=== PATIENT | male | born 1940 | race Caucasian/White ===

== ENCOUNTER 2016-03-08 12:29 | Inpatient (IN) | payer OTHER ==
[2016-03-08] MEDS ORDERED: SODIUM CHLORIDE 2,000 ML IV STA (13:08)
--- NOTE | 2016-03-08 13:08 | PDOC ---
History of Present Illness - General History Source: Patient, Care Provider, Old Records Exam Limitations: Physical Impairment <Miryam Cazares - Last Filed: 03/08/16 16:26> - General History Source: Patient, Family Exam Limitations: Other - History of Present Illness Initial Comments: 03/08/16 13:57 The patient is a 75 year old male with a significant past medical history of strokes who presents to the emergency department today complaining of generalized weakness, difficulty breathing, right sided facial droopiness, fever , and abdominal pain since this morning. The patient is non-verbal and accompanied by family members, The patients history of present illness is limited due to patient's current condition. The patients niece stated that he has previously had 5 strokes. The patients niece also notes that he has had a loss of apetite for 5 days. The patient denies nausea, vomiting, diarrhea, and constipation. The patient denies chills and diaphoresis. <Rafa Bernal - Last Filed: 03/08/16 16:35> - General Chief Complaint: Chest Pain Stated Complaint: CHEST PAIN, SOB Time Seen by Provider: 03/08/16 13:07 Past History - Past Medical History Cardiac Disorders: Yes (angina) CVA: Yes (3 tia 2 cva rt sided weakness) HTN: Yes - Immunization History Immunization Up to Date: Yes - Psycho/Social/Smoking Cessation Hx Anxiety: No Suicidal Ideation: No Smoking History: Former smoker Have you smoked in the past 12 months: No Information on smoking cessation initiated: No Hx Alcohol Use: No Drug/Substance Use Hx: No Substance Use Type: None <Miryam Cazares - Last Filed: 03/08/16 16:26> <Rafa Bernal - Last Filed: 03/08/16 16:35> - Past Medical History Allergies/Adverse Reactions: Allergies Allergy/AdvReac Type Severity Reaction Status Date / Time No Known Allergies Allergy Verified 03/08/16 12:42 Home Medications: Ambulatory Orders Aspirin [ASA -] 81 mg PO DAILY 03/08/16 Clopidogrel Bisulfate [Plavix -] 75 mg PO DAILY 03/08/16 Dutasteride [Avodart] 0.5 mg PO DAILY 03/08/16 Esomeprazole Magnesium [Nexium 24Hr] 40 mg PO DAILY 03/08/16 Fenofibrate Nanocrystallized [Fenofibrate] 145 mg PO DAILY 03/08/16 Gabapentin 300 mg PO BID 03/08/16 Oxybutynin Chloride [Ditropan Xl] 10 mg PO DAILY 03/08/16 Quinapril HCl [Accupril] 10 mg PO DAILY 03/08/16 Simvastatin 40 mg PO DAILY 03/08/16 Tamsulosin HCl [Flomax] 0.4 mg PO DAILY 03/08/16 Review of Systems - Review of Systems Able to Perform ROS?: Yes Comments:: 03/08/16 13:58 CONSTITUTIONAL: Present: loss of appetite, fever, generalized weakness Absent: chills, diaphoresis, HEENT: Present: right sided facial droopiness Absent: rhinorrhea, nasal congestion, throat pain, throat swelling, difficulty swallowing, mouth swelling, ear pain, eye pain, visual Changes CARDIOVASCULAR: Absent: chest pain, syncope, palpitations, irregular heart rate, lightheadedness , peripheral edema RESPIRATORY: Present: cough, shortness of breath, Absent: wheezing, stridor, hemoptysis GASTROINTESTINAL: Present: abdominal pain Absent:, abdominal distension, nausea, vomiting, diarrhea, constipation, melena , hematochezia GENITOURINARY: Absent: dysuria, frequency, urgency, hesitancy, hematuria, flank pain, genital pain MUSCULOSKELETAL: Absent: myalgia, arthralgia, joint swelling SKIN: Absent: rash, itching, pallor HEMATOLOGIC/IMMUNOLOGIC: Absent: easy bleeding, easy bruising, lymphadenopathy, frequent infections ENDOCRINE: Absent: unexplained weight gain, unexplained weight loss, heat intolerance, cold intolerance NEUROLOGIC: Absent: headache, focal weakness or paresthesias, dizziness, unsteady gait, seizure, mental status changes, bladder or bowel incontinence PSYCHIATRIC: Absent: anxiety, depression, suicidal or homicidal ideation, hallucinations. <Rafa Bernal - Last Filed: 03/08/16 16:35> *Physical Exam - Vital Signs Last Vital Signs Temp Pulse Resp BP Pulse Ox 97.3 F L 87 18 68/45 96 03/08/16 12:44 03/08/16 12:44 03/08/16 12:44 03/08/16 12:44 03/08/16 12:44 <Miryam Cazares - Last Filed: 03/08/16 16:26> - Vital Signs Last Vital Signs Temp Pulse Resp BP Pulse Ox 99.7 F H 81 28 H 94/60 93 L 03/08/16 13:45 03/08/16 13:00 03/08/16 13:00 03/08/16 13:00 03/08/16 13:00 - Physical Exam Comments: 03/08/16 13:58 GENERAL: Well developed, well nourished. Awake and alert. In no acute distress. HEENT: Normocephalic, atraumatic. PERRLA, EOMI. No conjunctival pallor. Sclera are non- icteric. Moist mucous membranes. Oropharynx is clear. NECK: Supple. Full ROM. No JVD. Carotid pulses 2+ and symmetric, without bruits. No thyromegaly. No lymphadenopathy. CARDIOVASCULAR: + Right sided CVA tenderness. Regular rate and rhythm. No murmurs, rubs, or gallops. Distal pulses are 2+ and symmetric. PULMONARY: No evidence of respiratory distress. Lungs clear to auscultation bilaterally. No wheezing, rales or rhonchi. ABDOMINAL: Diffuse abdominal tenderness worse on the right side. Soft. Non-distended. No rebound or guarding. No organomegaly. Normoactive bowel sounds. MUSCULOSKELETAL Normal range of motion at all joints. No bony deformities or tenderness. No CVA tenderness. EXTREMITIES: +5/5 strength in upper and lower extremities. No cyanosis. No clubbing. No edema. No calf tenderness. SKIN: Warm and dry. Normal capillary refill. No rashes. No jaundice. NEUROLOGICAL: Alert, awake, appropriate. Cranial nerves 2-12 intact. No deficits to light touch and temperature in face, upper extremities and lower extremities. PSYCHIATRIC: Cooperative. Good eye contact. Appropriate mood and affect. <Rafa Bernal - Last Filed: 03/08/16 16:35> ED Treatment Course - LABORATORY CBC & Chemistry Diagram: 03/08/16 13:36 03/08/16 13:36 <Miryam Cazares - Last Filed: 03/08/16 16:26> - LABORATORY CBC & Chemistry Diagram: 03/08/16 13:36 03/08/16 13:36 - ADDITIONAL ORDERS Additional order review: Laboratory Results 03/08/16 03/08/16 13:36 13:36 VBG pH 7.42 H POC VBG pCO2 35.2 L POC VBG pO2 32.9 Lipase Cancelled 03/08/16 13:36 RBC 4.71 MCV 91.6 MCHC 33.2 RDW 14.2 MPV 9.6 Neutrophils % 84.3 H Lymphocytes % 8.9 Monocytes % 6.2 Eosinophils % 0.4 Basophils % 0.2 - RADIOLOGY Radiology Studies Ordered: 03/08/16 15:19 EXAM#: CT/HEAD CT WITHOUT CONTRAST History: Altered mental status CT Head without contrast There is moderate cerebral atrophy with chronic deep white matter ischemic change Localized hypodense region left parietal lobe suggestive of old infarct Old lacunar infarcts noted There is no evidence of any intracerebral hemorrhage, mass lesion or midline shift. There is no evidence of an acute subdural hematoma. No CT evidence of acute infarct. No fractures are identified. Impression: No acute bleed or mass or fracture.No CT evidence of acute infarct. EXAM#: RAD/CHEST X-RAY PORTABLE* Chest: Sepsis A single view reveals a weak inspiration, rotation to the right, widened mediastinum with sclerotic knob and degenerative changes. An acute process is not seen. There are no prior studies for comparison. Impression: No acute pathology. Weak inspiration. Rotation to right. Widened mediastinum. Clear lungs. EXAM#: CT/ABDOMEN PELVIS CT W/O CONTR History: Acute renal failure and elevated lipase CT Scan of abdomen and pelvis without oral or IV contrast Prior study available for correlation Significant significant inflammatory changes surrounding the pancreas including infiltration of the mesenteric fat but no discrete pseudocyst formation identified. Multiple gallstones are identified in the gallbladder. Slightly posterior and inferior to the gallbladder is a cystic structure containing high density material could represent invagination of the gallbladder. Could represent a gallstone within the lumen of the proximal duodenum. Does not have the typical appearance of a pseudocyst although this cannot be excluded. Size of the cystic structures approximately 3 cm. Sonographic evaluation may be helpful. The liver, spleen, and adrenal glands are unremarkable. There is no evidence of retroperitoneal lymphadenopathy or abdominal aortic aneurysm. There is no hydronephrosis or renal masses. No renal calculi identified. The urinary bladder and prostate are unremarkable. Scattered diverticula of the colon but no evidence of acute diverticulitis There is no evidence of bowel obstruction. There are no inflammatory changes of the colon. No fluid collections are identified. Fat-containing right inguinal hernia plus hypodensity structure probably a calcification. Impression: Acute pancreatitis. No definitive pseudocyst formation but cystic structure near the gallbladder and head of pancreas could represent extension of the gallbladder possibly gallstone within the lumen of the duodenum. Gallstones are seen within the gallbladder. Consider sonographic evaluation of right upper quadrant for further evaluation <CyrilronyRafa - Last Filed: 03/08/16 16:35> Medical Decision Making - Medical Decision Making 03/08/16 13:42 75-year-old male with history of hypertension and multiple CVAs in the past presents the emergency department with family and home health aides who state that the patient has had decrease appetite, abdominal pain, cough and generalized weakness for the past 5 days. The patient was noted to be hypotensive upon arrival to the emergency department. Differential diagnosis includes but is not limited to: Gallbladder disease, sepsis (secondary to UTI versus pneumonia), pancreatitis, dehydration, electrolyte abnormality, toxic/ metabolic derangement. Plan: 1. IV fluid for hydration 2. EKG 3. Labs 4. Chest x-ray 5. Urine 6. Observe and reevaluate 03/08/16 16:13 Addendum: The labs were reviewed and are noted in the electronic medical record. He had an elevated lipase and LFTs therefore CT scan of the abdomen and pelvis was performed and is significant for acute pancreatitis. Will admit to the hospital for IV fluids hydration, Pain management. <Miryam Cazares - Last Filed: 03/08/16 16:26> - Medical Decision Making 03/08/16 12:10 Call was placed to Dr[address] Shrestha to discuss case. Awaiting call back. Received call back from an on -call colleague who stated that Dr. Shrestha was construction engineer. 03/08/16 14:56 Second call was placed to Dr. Shrestha. Still awaiting a call back. 03/08/16 15:12 A third was placed to Dr. Shrestha. Awaiting call back. Dr. Shrestha was contacted at her cell phone. 03/08/16 15:45 A fourth page was put out to Dr. Shrestha and numerous messages were left by the answering service. Still awaiting call back. According to the answering service Dr. Shrestha is construction engineer physician for the group. A page was placed to her colleague, awaiting call back from him or Dr. Shrestha herself. 03/08/16 16:22 A call back was finally received from Dr. Shrestha who noted that she no longer admits for [facility] and the patient should be admitted by the hospitalist. Dr. Miranda, construction engineer physician for medicine, was contacted and case discussed with her. <Rafa Bernal - Last Filed: 03/08/16 16:35> *DC/Admit/Observation/Transfer - Discharge Dispostion Admit: Yes - Attestations Physician Attestion: 03/08/16 13:46 I, Dr. Miryam Cazares, attest that the scribes documentation that appears above has been prepared under my direction and personally reviewed by me in its entirety. I confirmed that the note above accurately reflects all work, treatment, procedures, and medical decision-making performed by me. <Miryam Cazares - Last Filed: 03/08/16 16:26> - Attestations Scribe Attestion: 03/08/16 13:58 Documentation prepared by Rafa Bernal, acting as medical review coordinator for Miryam Cazares MD. <Rafa Bernal - Last Filed: 03/08/16 16:35> Diagnosis at time of Disposition: Generalized weakness, Hypotension, Acute pancreatitis - Discharge Dispostion Condition at time of disposition: Stable - Referrals Referrals: Laina Shrestha MD [Primary Care Provider] -
[2016-03-08 13:42] LABS: VENOUS BLOOD GAS HCO3 22.5 meq/L (22-29)
[2016-03-08 13:43] LABS: VENOUS PH 7.42 (7.31-7.41)
[2016-03-08 13:46] LABS: BASOPHIL 0.2 % (0-2.0); EOSINOPHIL 0.4 % (0-4.5); MCH 30.4 pg (25.7-33.7); MCHC 33.2 g/dl (32.0-35.9); MEAN CELL VOLUME 91.6 fl (80-96); MEAN PLT VOLUME 9.6 fl (7.5-11.1); NEUTROPHILS 84.3 % (42.8-82.8); PLATELET COUNT 233 K/MM3 (134-434); RDW 14.2 % (11.9-15.9); WHITE BLOOD COUNT 15.4 K/mm3 (4.0-10.0)
[2016-03-08 13:57] LABS: INR 1.18 (0.82-1.09)
[2016-03-08 14:00] LABS: ACTIVATED PTT 26.9 SECONDS (26.9-34.4)
[2016-03-08 14:17] LABS: ALBUMIN 2.9 g/dl (3.4-5.0); ANION GAP 12 (8-16); BILIRUBIN,TOTAL 1.3 mg/dL (0.2-1.0); CALCIUM 8.8 mg/dL (8.5-10.1); CO2 23 mmol/L (21-32); CREATININE 1.9 mg/dL (0.7-1.3); GLUCOSE,RANDOM 124 mg/dL (74-106); SGPT/ALT 105 U/L (12-78); TOT PROT 6.9 g/dl (6.4-8.2)
[2016-03-08 14:19] LABS: ALK PHOS 83 U/L (45-117); TROPONIN I < 0.02 ng/ml (0.00-0.05)
[2016-03-08 14:23] LABS: SGOT/AST 128 U/L (15-37)
[2016-03-08] MEDS ORDERED: SODIUM CHLORIDE 1,000 ML IV STA (16:17)
[2016-03-08] MEDS ORDERED: morphine CARPU-JECT 4 MG/1 ML DISP.SYRIN IVPUSH ONE (16:17)
[2016-03-08] MEDS ORDERED: morphine CARPU-JECT 4 MG/1 ML DISP.SYRIN ONE (16:22)
[2016-03-08] MEDS ORDERED: ONDANSETRON 4 MG/2 ML VIAL IVPB PRN (16:54)
[2016-03-08] MEDS ORDERED: SODIUM CHLORIDE 1,000 ML IV SCH (17:00)
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
[2016-03-08] MEDS ORDERED: CIPROFLOXACIN 400 MG/D5W 200 ML IVPB SCH (18:33)
[2016-03-08] MEDS: METRONIDAZOLE 500 MG PREMIXED 100 ML IVPB SCH (22:15)
[2016-03-08] MEDS: LEVOFLOXACIN 500 MG IVPB 100 ML IVPB SCH (23:20)
[2016-03-08] MEDS: GABAPENTIN 300 MG CAPSULE (FP) PO SCH (23:21)
[2016-03-08] MEDS: HEPARIN NA (PORCINE) 5,000 UNITS/ML 1ML VIAL SQ SCH (23:21)
[2016-03-09 01:30] VITALS: BMI 30.4
[2016-03-09 03:59] LABS: URINE APPEARANCE CLOUDY; URINE BILIRUBIN NEGATIVE (NEGATIVE); URINE COLOR AMBER; URINE GLUCOSE (UA) NEGATIVE (NEGATIVE); URINE KETONE NEGATIVE (NEGATIVE); URINE LEUK ESTERASE NEGATIVE (NEGATIVE); URINE NITRITE NEGATIVE (NEGATIVE); URINE UROBILINOGEN 4.0 E.U/dl E.U./dl (0.2-1.0)
[2016-03-09] MEDS: METRONIDAZOLE 500 MG PREMIXED 100 ML IVPB SCH ×2 (04:00→10:05)
[2016-03-09 04:05] LABS: URINE BLOOD 1+ (NEGATIVE); URINE PROTEIN 2+ (NEGATIVE)
[2016-03-09 04:10] LABS: URINE BACTERIA RARE /hpf (NONE SEEN); URINE HYALINE CAST 3 /lpf; URINE MUCUS MODERATE; URINE RBC 2 /hpf (0-3); URINE WBC 11 /hpf (3-5)
[2016-03-09 07:50] LABS: BASOPHIL 0.1 % (0-2.0); EOSINOPHIL 0.2 % (0-4.5); MCH 30.3 pg (25.7-33.7); MCHC 33.4 g/dl (32.0-35.9); MEAN CELL VOLUME 90.6 fl (80-96); MEAN PLT VOLUME 9.6 fl (7.5-11.1); NEUTROPHILS 83.5 % (42.8-82.8); PLATELET COUNT 215 K/MM3 (134-434); RDW 14.2 % (11.9-15.9); WHITE BLOOD COUNT 14.2 K/mm3 (4.0-10.0)
[2016-03-09 08:48] LABS: CREATININE 1.2 mg/dL (0.7-1.3)
[2016-03-09 08:59] LABS: ALBUMIN 2.4 g/dl (3.4-5.0); BILIRUBIN,TOTAL 1.8 mg/dL (0.2-1.0); CALCIUM 8.6 mg/dL (8.5-10.1); TOT PROT 5.9 g/dl (6.4-8.2)
[2016-03-09] MEDS ORDERED: PATIENT'S OWN MEDICATION (NON-FORMULARY) (Oxybutynin Chloride [Ditropan Xl] 10 MG) PO SCH (10:00)
[2016-03-09] MEDS ORDERED: QUINAPRIL HCL 10 MG TABLET (FP) PO SCH (10:00)
[2016-03-09] MEDS ORDERED: CLOPIDOGREL BISULFATE 75 MG TABLET (FP) PO SCH (10:00)
[2016-03-09] MEDS: ASPIRIN 81 MG CHEWABLE TABLETS PO SCH (10:05)
[2016-03-09] MEDS: GABAPENTIN 300 MG CAPSULE (FP) PO SCH ×2 (10:05→21:26)
[2016-03-09] MEDS: HEPARIN NA (PORCINE) 5,000 UNITS/ML 1ML VIAL SQ SCH ×2 (10:05→21:26)
[2016-03-09] MEDS: LEVOFLOXACIN 500 MG IVPB 100 ML IVPB SCH (10:05)
[2016-03-09] MEDS: DUTASTERIDE 0.5 MG CAP (FP) PO SCH (10:05)
[2016-03-09] MEDS: TAMSULOSIN HCL 0.4 MG CAP.ER.24H (FP) PO SCH (10:05)
[2016-03-09] MEDS: FENOFIBRIC ACID 135 MG CAP PO SCH (10:14)
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
--- NOTE | 2016-03-09 11:51 | EKG ---
Test Reason : Blood Pressure : / mmHG Vent. Rate : 082 BPM Atrial Rate : 082 BPM P-R Int : 154 ms QRS Dur : 098 ms QT Int : 358 ms P-R-T Axes : 050 006 065 degrees QTc Int : 418 ms NORMAL SINUS RHYTHM NORMAL ECG WHEN COMPARED WITH ECG OF 24-JUN-2005 22:51, NO SIGNIFICANT CHANGE WAS FOUND Confirmed by RAUL HENDERSON MD ([id number]) on 03/09/2016 11:51:12 AM Referred By: Overread By: RAUL HENDERSON MD
[2016-03-09] MEDS: morphine CARPU-JECT 2 MG/1 ML DISP.SYRIN IVPUSH PRN ×2 (13:25→21:26)
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
--- NOTE | 2016-03-09 21:06 | PN ---
Progress Note, Physician Chief Complaint: abdominal pain controlled with medications, no other complaints. Hungry. - Current Medication List Current Medications: Active Medications Aspirin (Asa -) 81 mg PO DAILY [facility] Last Admin: 03/09/16 10:05 Dose: 81 mg Atorvastatin Calcium (Lipitor -) 20 mg PO HS [facility] Dutasteride (Avodart -) 0.5 mg PO DAILY [facility] Last Admin: 03/09/16 10:05 Dose: 0.5 mg Fenofibric Acid (Trilipix -) 135 mg PO DAILY [facility] Last Admin: 03/09/16 10:14 Dose: 135 mg Gabapentin (Neurontin -) 300 mg PO BID [facility] Last Admin: 03/09/16 10:05 Dose: 300 mg Heparin Sodium (Porcine) (Heparin -) 5,000 unit SQ BID [facility] Last Admin: 03/09/16 10:05 Dose: 5,000 unit Metronidazole (Flagyl 500mg Premixed Ivpb -) 100 mls @ 100 mls/hr IVPB Q8H-IV [facility] Last Admin: 03/09/16 10:05 Dose: 100 mls/hr Levofloxacin (Levaquin 500 Mg Premixed Ivpb -) 100 mls @ 100 mls/hr IVPB DAILY [facility] Last Admin: 03/09/16 10:05 Dose: 100 mls/hr Sodium Chloride (Normal Saline -) 1,000 mls @ 200 mls/hr IV ASDIR [facility] Morphine Sulfate (Morphine Injection -) 2 mg IVPUSH Q4H PRN PRN Reason: PAIN Last Admin: 03/09/16 13:25 Dose: 2 mg Ondansetron HCl (Zofran Injection) 4 mg IVPB Q8H PRN PRN Reason: NAUSEA Solifenacin (Vesicare -) 5 mg PO DAILY [facility] Tamsulosin HCl (Flomax -) 0.4 mg PO DAILY [facility] Last Admin: 03/09/16 10:05 Dose: 0.4 mg - Objective Vital Signs: Vital Signs Temperature 100.4 F H 03/09/16 17:00 Pulse Rate 72 03/09/16 17:00 Respiratory Rate 16 03/09/16 20:58 Blood Pressure 147/72 03/09/16 17:00 O2 Sat by Pulse Oximetry (%) 100 03/09/16 20:58 Constitutional: Yes: Well Nourished, No Distress, Calm Cardiovascular: Yes: WNL, Regular Rate and Rhythm Respiratory: Yes: WNL, Regular, CTA Bilaterally Gastrointestinal: Yes: Tenderness, Epigastrium Extremities: Yes: WNL Edema: No ...Motor Strength: WNL Labs: CBC, BMP 03/09/16 05:35 03/09/16 05:35 INR, PTT INR 1.18 (0.82-1.09) H 03/08/16 13:36 Problem List - Problems (1) Acute pancreatitis Assessment/Plan: -likely gallstone pancreatitis, MRCP ordered -GI and surgery notes reviewed -continue iv hydration -levaquin and flagyl -npo -pain control -antiemetics -monitor lfts -attempted to reach pcp yesterday and today to clarify medical hx(?cad,) still awaiting call back Code(s): K85.9 - ACUTE PANCREATITIS, UNSPECIFIED * DO NOT USE * (2) CVA, old, aphasia Code(s): I69.320 - APHASIA FOLLOWING CEREBRAL INFARCTION (3) HTN (hypertension) Code(s): I10 - ESSENTIAL (PRIMARY) HYPERTENSION (4) HLD (hyperlipidemia) Code(s): E78.5 - HYPERLIPIDEMIA, UNSPECIFIED
[2016-03-09] MEDS: SODIUM CHLORIDE 1,000 ML IV SCH (21:26)
[2016-03-09] MEDS: ATORVASTATIN CA 20 MG TABLET (FP) PO SCH (21:26)
[2016-03-10] MEDS: METRONIDAZOLE 500 MG PREMIXED 100 ML IVPB SCH ×3 (03:17→17:38)
[2016-03-10] MEDS: SODIUM CHLORIDE 1,000 ML IV SCH ×2 (03:17→16:11)
[2016-03-10] MEDS: morphine CARPU-JECT 2 MG/1 ML DISP.SYRIN IVPUSH PRN ×3 (05:20→17:38)
[2016-03-10 08:26] LABS: ALBUMIN 2.3 g/dl (3.4-5.0); BILIRUBIN,DIRECT 0.7 mg/dL (0.0-0.2); BILIRUBIN,TOTAL 1.3 mg/dL (0.2-1.0); TOT PROT 5.5 g/dl (6.4-8.2)
[2016-03-10] MEDS: FENOFIBRIC ACID 135 MG CAP PO SCH (09:25)
[2016-03-10] MEDS: ASPIRIN 81 MG CHEWABLE TABLETS PO SCH (09:25)
[2016-03-10] MEDS: GABAPENTIN 300 MG CAPSULE (FP) PO SCH ×2 (09:25→22:01)
[2016-03-10] MEDS: TAMSULOSIN HCL 0.4 MG CAP.ER.24H (FP) PO SCH (09:25)
[2016-03-10] MEDS: HEPARIN NA (PORCINE) 5,000 UNITS/ML 1ML VIAL SQ SCH ×2 (09:26→22:02)
[2016-03-10] MEDS: SOLIFENACIN SUCCINATE 5 MG TAB (FP) PO SCH (09:26)
[2016-03-10] MEDS: DUTASTERIDE 0.5 MG CAP (FP) PO SCH (09:26)
[2016-03-10] MEDS: LEVOFLOXACIN 500 MG IVPB 100 ML IVPB SCH (09:26)
--- NOTE | 2016-03-10 13:26 | PN ---
Progress Note (short form) - Note Progress Note: PRE-OP NOTE Dx: GS Pancreatitis Planned procedure: Lap norm, possible open Surgeon: Dr. Dudley Longo Last Vital Signs Temp Pulse Resp BP Pulse Ox 98.7 F 84 18 103/53 98 03/10/16 10:00 03/10/16 10:00 03/10/16 10:00 03/10/16 10:00 03/10/16 10:00 CBC, BMP 03/09/16 05:35 03/09/16 05:35 INR, PTT INR 1.18 (0.82-1.09) H 03/08/16 13:36 Blood Type Blood Type A POSITIVE 03/08/16 14:30 MRCP: official results reviewed. CXR 03/08: JESSICA Problem List - Problems (1) Cholelithiasis NOS Assessment/Plan: Patient scheduled for lap norm at 10am 03/11/16. NPO after midnight except PO meds GI / DVT ppx Medical optimization & cardiac clearance ABove discussed with Dr. Longo and agrees. Code(s): K80.20 - CALCULUS OF GALLBLADDER W/O CHOLECYSTITIS W/O OBSTRUCTION (2) Acute pancreatitis Code(s): K85.9 - ACUTE PANCREATITIS, UNSPECIFIED * DO NOT USE * (3) CVA, old, aphasia Code(s): I69.320 - APHASIA FOLLOWING CEREBRAL INFARCTION (4) HTN (hypertension) Code(s): I10 - ESSENTIAL (PRIMARY) HYPERTENSION
--- NOTE | 2016-03-10 13:41 | PN ---
Progress Note (short form) - Note Progress Note: GI NOte: ERCP reviewed with Dr Aviles. No CBD obstruction but pancreatitis in head still seen. ERCP canceled.
[2016-03-10 14:32] LABS: ALBUMIN 2.5 g/dl (3.4-5.0); ANION GAP 7 (8-16); CO2 25 mmol/L (21-32); GLUCOSE,RANDOM 88 mg/dL (74-106); MAGNESIUM 1.7 mg/dL (1.8-2.4); SGOT/AST 44 U/L (15-37); SGPT/ALT 69 U/L (12-78); TOT PROT 5.8 g/dl (6.4-8.2)
[2016-03-10 14:33] LABS: ALK PHOS 83 U/L (45-117)
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
--- NOTE | 2016-03-10 15:58 | PN ---
Progress Note (short form) - Note Progress Note: 1. Pre-op cardiovascular evaluation lap/open cholecystectomy for GS pancreatitis 2. 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 HTN 4. Cholelithiasis 5. PVC P:1. Given absence of ischemic sxs, decompensated CHF or maliganant arrhythmia, may proceed with cholecystectomy from CV standpoint without further testing 2. Echocardiogram to assess LV and valve fxn, does not have to be performed prior to surgery 3. Hold ASA/Plavix pre-op and resume once post-op hemostasis has been achieved, start Toprol XL 25 qd, continue Accupril 10 qd, continue abx, bowel rest 4. Thank you for consultative opportunity Problem List - Problems (1) Acute pancreatitis Code(s): K85.9 - ACUTE PANCREATITIS, UNSPECIFIED * DO NOT USE * Qualifiers: Pancreatitis type: other Qualified Code(s): K85.8 - Other acute pancreatitis (2) CVA, old, aphasia Code(s): I69.320 - APHASIA FOLLOWING CEREBRAL INFARCTION (3) HLD (hyperlipidemia) Code(s): E78.5 - HYPERLIPIDEMIA, UNSPECIFIED Qualifiers: Hyperlipidemia type: pure hypercholesterolemia Qualified Code(s): E78.0 - Pure hypercholesterolemia (4) HTN (hypertension) Code(s): I10 - ESSENTIAL (PRIMARY) HYPERTENSION Qualifiers: Hypertension type: essential hypertension Qualified Code(s): I10 - Essential (primary) hypertension
[2016-03-10] MEDS: METOPROLOL SUCCINATE 25 MG TAB.SR.24H (FP) PO SCH (16:11)
--- NOTE | 2016-03-10 18:34 | PN ---
Progress Note, Physician History of Present Illness: No new change - Current Medication List Current Medications: Active Medications Atorvastatin Calcium (Lipitor -) 20 mg PO HS [facility] Last Admin: 03/09/16 21:26 Dose: 20 mg Dutasteride (Avodart -) 0.5 mg PO DAILY [facility] Last Admin: 03/10/16 09:26 Dose: 0.5 mg Fenofibric Acid (Trilipix -) 135 mg PO DAILY [facility] Last Admin: 03/10/16 09:25 Dose: 135 mg Gabapentin (Neurontin -) 300 mg PO BID [facility] Last Admin: 03/10/16 09:25 Dose: 300 mg Heparin Sodium (Porcine) (Heparin -) 5,000 unit SQ BID [facility] Last Admin: 03/10/16 09:26 Dose: 5,000 unit Metronidazole (Flagyl 500mg Premixed Ivpb -) 100 mls @ 100 mls/hr IVPB Q8H-IV [facility] Last Admin: 03/10/16 17:38 Dose: 100 mls/hr Levofloxacin (Levaquin 500 Mg Premixed Ivpb -) 100 mls @ 100 mls/hr IVPB DAILY [facility] Last Admin: 03/10/16 09:26 Dose: 100 mls/hr Sodium Chloride (Normal Saline -) 1,000 mls @ 200 mls/hr IV ASDIR [facility] Last Admin: 03/10/16 16:11 Dose: 200 mls/hr Metoprolol Succinate (Toprol Xl -) 25 mg PO DAILY [facility] Last Admin: 03/10/16 16:11 Dose: 25 mg Morphine Sulfate (Morphine Injection -) 2 mg IVPUSH Q4H PRN PRN Reason: PAIN Last Admin: 03/10/16 17:38 Dose: 2 mg Ondansetron HCl (Zofran Injection) 4 mg IVPB Q8H PRN PRN Reason: NAUSEA Solifenacin (Vesicare -) 5 mg PO DAILY [facility] Last Admin: 03/10/16 09:26 Dose: 5 mg Tamsulosin HCl (Flomax -) 0.4 mg PO DAILY [facility] Last Admin: 03/10/16 09:25 Dose: 0.4 mg - Objective Vital Signs: Vital Signs Temperature 99.1 F 03/10/16 15:00 Pulse Rate 74 03/10/16 15:00 Respiratory Rate 18 03/10/16 15:00 Blood Pressure 127/64 03/10/16 15:00 O2 Sat by Pulse Oximetry (%) 98 03/10/16 10:00 Constitutional: Yes: Well Nourished Cardiovascular: Yes: WNL, Regular Rate and Rhythm Respiratory: Yes: WNL, Regular, CTA Bilaterally Gastrointestinal: Yes: WNL, Soft Labs: CBC, BMP 03/09/16 05:35 03/10/16 13:45 INR, PTT INR 1.18 (0.82-1.09) H 03/08/16 13:36 Problem List - Problems (1) Acute pancreatitis Assessment/Plan: MRCP showed gallstone pancreatitis Pt scheduled for lap choley Cardio clearance appreciated Cont IVF/NPO Code(s): K85.9 - ACUTE PANCREATITIS, UNSPECIFIED * DO NOT USE * Qualifiers: Pancreatitis type: other Qualified Code(s): K85.8 - Other acute pancreatitis (2) CVA, old, aphasia Code(s): I69.320 - APHASIA FOLLOWING CEREBRAL INFARCTION (3) Cholelithiasis NOS Code(s): K80.20 - CALCULUS OF GALLBLADDER W/O CHOLECYSTITIS W/O OBSTRUCTION (4) HLD (hyperlipidemia) Code(s): E78.5 - HYPERLIPIDEMIA, UNSPECIFIED Qualifiers: Hyperlipidemia type: pure hypercholesterolemia Qualified Code(s): E78.0 - Pure hypercholesterolemia (5) HTN (hypertension) Code(s): I10 - ESSENTIAL (PRIMARY) HYPERTENSION Qualifiers: Hypertension type: essential hypertension Qualified Code(s): I10 - Essential (primary) hypertension
[2016-03-10] MEDS: ATORVASTATIN CA 20 MG TABLET (FP) PO SCH (22:01)
[2016-03-11] MEDS: METRONIDAZOLE 500 MG PREMIXED 100 ML IVPB SCH ×3 (01:19→17:14)
[2016-03-11 08:19] LABS: BASOPHIL 0.3 % (0-2.0); EOSINOPHIL 0.5 % (0-4.5); MCH 30.6 pg (25.7-33.7); MCHC 33.5 g/dl (32.0-35.9); MEAN CELL VOLUME 91.4 fl (80-96); MEAN PLT VOLUME 9.6 fl (7.5-11.1); NEUTROPHILS 78.1 % (42.8-82.8); PLATELET COUNT 251 K/MM3 (134-434); RDW 14.1 % (11.9-15.9); WHITE BLOOD COUNT 12.1 K/mm3 (4.0-10.0)
[2016-03-11 08:34] LABS: ALBUMIN 2.4 g/dl (3.4-5.0); ANION GAP 2 (8-16); CALCIUM 8.8 mg/dL (8.5-10.1); CO2 25 mmol/L (21-32); GLUCOSE,RANDOM 79 mg/dL (74-106); SGOT/AST 42 U/L (15-37); TOT PROT 5.5 g/dl (6.4-8.2)
[2016-03-11 08:41] LABS: ALK PHOS 81 U/L (45-117); CREATININE 0.9 mg/dL (0.7-1.3); SGPT/ALT 58 U/L (12-78)
[2016-03-11] MEDS: FENOFIBRIC ACID 135 MG CAP PO SCH (09:14)
[2016-03-11] MEDS: SOLIFENACIN SUCCINATE 5 MG TAB (FP) PO SCH (09:14)
[2016-03-11] MEDS: LEVOFLOXACIN 500 MG IVPB 100 ML IVPB SCH ×2 (09:14→14:05)
[2016-03-11] MEDS: GABAPENTIN 300 MG CAPSULE (FP) PO SCH ×2 (09:14→22:08)
[2016-03-11] MEDS: METOPROLOL SUCCINATE 25 MG TAB.SR.24H (FP) PO SCH (09:14)
[2016-03-11] MEDS: DUTASTERIDE 0.5 MG CAP (FP) PO SCH (09:14)
[2016-03-11] MEDS: HEPARIN NA (PORCINE) 5,000 UNITS/ML 1ML VIAL SQ SCH ×2 (09:14→22:09)
[2016-03-11] MEDS: TAMSULOSIN HCL 0.4 MG CAP.ER.24H (FP) PO SCH (09:14)
[2016-03-11] MEDS ORDERED: DEXAMETHASONE SOD PHOSPHATE 4 MG/1 ML VIAL ONE (10:45)
[2016-03-11] MEDS ORDERED: PROPOFOL 20 ML ONE (10:46)
[2016-03-11] MEDS ORDERED: LIDOCAINE HCL/PF 2% SDV 5ML VIAL ONE (10:46)
[2016-03-11] MEDS ORDERED: ROCURONIUM BROMIDE 50 MG/5 ML VIAL ONE (10:47)
[2016-03-11] MEDS ORDERED: BUPIVACAINE HCL/PF 0.5% (5MG/ML) 10 ML VIAL IJ ONE ×2 (11:11)
[2016-03-11] MEDS ORDERED: GLYCOPYRROLATE 0.2 MG/1 ML VIAL ONE (11:50)
[2016-03-11] MEDS ORDERED: NEOSTIGMINE METHYLSULFATE 0.5 MG/ML - 10 ML MDV ONE (11:50)
--- NOTE | 2016-03-11 12:04 | OP ---
Operative Note - Note: Operative Date: 03/11/16 Pre-Operative Diagnosis: gall stone pancreatitis Operation: laparoscopic cholecystecotmy Post-Operative Diagnosis: Same as Pre-op Surgeon: Dudley Longo Anesthesia: General Specimens Removed: gall bladder Estimated Blood Loss (mls): 30 Drains & Tubes with Location: [facility]do Operative Report Dictated: Yes
[2016-03-11] MEDS ORDERED: HYDROmorphone HCL CARPU-JECT 2 MG/1 ML DISP.SYRIN ONE (12:21)
--- NOTE | 2016-03-11 12:23 | SURG ---
Surgery Real Estate Specialist Note Real Estate Specialist: Michelle Valentino PA-C Date of Service: 03/11/16 Diagnosis: gallstone pancreatitis Procedure: laparoscopic cholecystecotmy I was present for the entirety of the operative procedure. For further detail, please refer to operative report. Visit type - Case Type Case Type: ED Admission - Emergency Emergency Visit: Yes ED Registration Date: 03/08/16 Care time: The patient presented to the Emergency Department on the above date and was hospitalized for further evaluation of their emergent condition. - New patient This patient is new to me today: No
[2016-03-11] MEDS: HYDROmorphone HCL CARPU-JECT 1 MG/1 ML DISP.SYRIN IVPUSH PRN ×2 (12:25→12:40)
[2016-03-11] MEDS ORDERED: dilTIAZem HCL 30 MG TABLET (FP) ONE (12:43)
[2016-03-11] MEDS ORDERED: ONDANSETRON 4 MG/2 ML VIAL IVPB PRN (12:44)
[2016-03-11] MEDS ORDERED: morphine CARPU-JECT 2 MG/1 ML DISP.SYRIN IVPUSH PRN (12:44)
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
--- NOTE | 2016-03-11 13:26 | PN ---
Progress Note, Physician Chief Complaint: Events noted Patient seen in recovery room post laparoscopic cholecystectomy Awake and hemodynamically stable History of Present Illness: Patient was seen and examined. Chart was reviewed - Current Medication List Current Medications: Active Medications Atorvastatin Calcium (Lipitor -) 20 mg PO HS [facility] Dutasteride (Avodart -) 0.5 mg PO DAILY [facility] Fenofibric Acid (Trilipix -) 135 mg PO DAILY [facility] Gabapentin (Neurontin -) 300 mg PO BID [facility] Heparin Sodium (Porcine) (Heparin -) 5,000 unit SQ BID [facility] Hydromorphone HCl (Dilaudid Injection -) 1 mg IVPUSH [id number] PRN PRN Reason: PAIN Stop: 03/14/16 12:20 Lactated Ringer's (Lactated Ringers Solution) 1,000 mls @ 83 mls/hr IV ASDIR [facility] Metronidazole (Flagyl 500mg Premixed Ivpb -) 100 mls @ 100 mls/hr IVPB Q8H-IV [facility] Levofloxacin (Levaquin 500 Mg Premixed Ivpb -) 100 mls @ 100 mls/hr IVPB DAILY [facility] Metoprolol Succinate (Toprol Xl -) 25 mg PO DAILY [facility] Morphine Sulfate (Morphine Injection -) 4 mg IVPUSH Q4H PRN PRN Reason: PAIN Ondansetron HCl (Zofran Injection) 4 mg IVPB Q8H PRN PRN Reason: NAUSEA Pantoprazole Sodium (Protonix -) 40 mg PO DAILY [facility] Solifenacin (Vesicare -) 5 mg PO DAILY [facility] Tamsulosin HCl (Flomax -) 0.4 mg PO DAILY@0830 [facility] - Objective Vital Signs: Vital Signs Temperature 99.1 F 03/11/16 12:10 Pulse Rate 86 03/11/16 12:25 Respiratory Rate 18 03/11/16 12:25 Blood Pressure 138/74 03/11/16 12:25 O2 Sat by Pulse Oximetry (%) 94 L 03/11/16 12:25 Neck: Yes: Supple Cardiovascular: Yes: Regular Rate and Rhythm, S1, S2 Respiratory: Yes: Diminished Gastrointestinal: Yes: Other (Post Op) Edema: No Labs: CBC, BMP 03/11/16 06:00 03/11/16 06:00 Assessment/Plan 1. 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 HTN 4. Cholelithiasis 5. PVC PLAN: 1. Post op management. 2. Transthoracic echocardiography at some point 3. Resume ASA +/- Plavix post-op once hemostasis has been achieved 4. Restart Toprol XL 25 mg QD and Accupril 10 mg QD once able to take PO 5. Continue antibiotic coverage Further plans are to follow May transfer to med/surg cardiac standpoint Anand Araya MD
[2016-03-11] MEDS: LACTATED RINGERS SOLUTION 1,000 ML IV SCH (14:05)
--- NOTE | 2016-03-11 15:11 | PN ---
GI Progress Note Subjective: Taken to OR today and underwent lap norm No acute events - Objective Vital Signs: Vital Signs Temperature 98.9 F 03/11/16 14:52 Pulse Rate 75 03/11/16 14:52 Respiratory Rate 20 03/11/16 14:52 Blood Pressure 136/56 03/11/16 14:52 O2 Sat by Pulse Oximetry (%) 98 03/11/16 13:55 Constitutional: Calm Eyes: No: Sclera Icterus Cardiovascular: Yes: Regular Rate and Rhythm (with PVC's) Respiratory: Yes: CTA Bilaterally Gastrointestinal Inspection: Yes: Scars (new torchar scars that were glued, + JUANI drain in place with serosanguinous fluid). No: Distention ...Auscultate: Yes: Normoactive Bowel Sounds ...Palpate: Yes: Tenderness (at trochar sites) Edema: No Labs: CBC, BMP 03/11/16 06:00 03/11/16 06:00 INR, PTT INR 1.18 (0.82-1.09) H 03/08/16 13:36 Hepatic Panel Total Bilirubin 1.0 mg/dL (0.2-1.0) 03/11/16 06:00 Direct Bilirubin 0.7 mg/dL (0.0-0.2) H 03/10/16 05:35 AST 42 U/L (15-37) H 03/11/16 06:00 ALT 58 U/L (12-78) 03/11/16 06:00 Alkaline Phosphatase 81 U/L (45-117) 03/11/16 06:00 Albumin 2.4 g/dl (3.4-5.0) L 03/11/16 06:00 - ....Imaging MRI: Other (cystic structure near head of pancreas) Problem List - Problems (1) Acute pancreatitis Assessment/Plan: Improved clinically Monitor LFTs. If LFTs rise in obstructive pattern may need ERCP to evaluate CBD Code(s): K85.9 - ACUTE PANCREATITIS, UNSPECIFIED * DO NOT USE * Qualifiers: Pancreatitis type: other Qualified Code(s): K85.8 - Other acute pancreatitis (2) Cholelithiasis NOS Assessment/Plan: S/P Lap Norm. Post op care per surgery Code(s): K80.20 - CALCULUS OF GALLBLADDER W/O CHOLECYSTITIS W/O OBSTRUCTION
--- NOTE | 2016-03-11 20:16 | PN ---
Progress Note, Physician History of Present Illness: Pt tolerated surgery however slightly aggitated this pm - Current Medication List Current Medications: Active Medications Atorvastatin Calcium (Lipitor -) 20 mg PO HS [facility] Dutasteride (Avodart -) 0.5 mg PO DAILY [facility] Fenofibric Acid (Trilipix -) 135 mg PO DAILY [facility] Gabapentin (Neurontin -) 300 mg PO BID [facility] Heparin Sodium (Porcine) (Heparin -) 5,000 unit SQ BID [facility] Hydromorphone HCl (Dilaudid Injection -) 1 mg IVPUSH [id number] PRN PRN Reason: PAIN Stop: 03/14/16 12:20 Last Admin: 03/11/16 12:40 Dose: 0.5 mg Lactated Ringer's (Lactated Ringers Solution) 1,000 mls @ 83 mls/hr IV ASDIR [facility] Last Admin: 03/11/16 14:05 Dose: 83 mls/hr Metronidazole (Flagyl 500mg Premixed Ivpb -) 100 mls @ 100 mls/hr IVPB Q8H-IV [facility] Last Admin: 03/11/16 17:14 Dose: 100 mls/hr Levofloxacin (Levaquin 500 Mg Premixed Ivpb -) 100 mls @ 100 mls/hr IVPB DAILY [facility] Metoprolol Succinate (Toprol Xl -) 25 mg PO DAILY [facility] Morphine Sulfate (Morphine Injection -) 4 mg IVPUSH Q4H PRN PRN Reason: PAIN Ondansetron HCl (Zofran Injection) 4 mg IVPB Q8H PRN PRN Reason: NAUSEA Pantoprazole Sodium (Protonix -) 40 mg PO DAILY [facility] Solifenacin (Vesicare -) 5 mg PO DAILY [facility] Tamsulosin HCl (Flomax -) 0.4 mg PO DAILY@0830 [facility] - Objective Vital Signs: Vital Signs Temperature 98.9 F 03/11/16 14:52 Pulse Rate 75 03/11/16 14:52 Respiratory Rate 20 03/11/16 14:52 Blood Pressure 136/56 03/11/16 14:52 O2 Sat by Pulse Oximetry (%) 98 03/11/16 13:55 Neck: Yes: Supple Cardiovascular: Yes: WNL, Regular Rate and Rhythm Respiratory: Yes: WNL, Regular, CTA Bilaterally Labs: CBC, BMP 03/11/16 06:00 03/11/16 06:00 INR, PTT INR 1.18 (0.82-1.09) H 03/08/16 13:36 Problem List - Problems (1) Acute pancreatitis Assessment/Plan: S/P julio choley MRCP showed gallstone pancreatitis Advance diet as per surgery Cont IV levaquin/flagyl Code(s): K85.9 - ACUTE PANCREATITIS, UNSPECIFIED * DO NOT USE * Qualifiers: Pancreatitis type: other Qualified Code(s): K85.8 - Other acute pancreatitis (2) CVA, old, aphasia Code(s): I69.320 - APHASIA FOLLOWING CEREBRAL INFARCTION (3) Cholelithiasis NOS Code(s): K80.20 - CALCULUS OF GALLBLADDER W/O CHOLECYSTITIS W/O OBSTRUCTION (4) HLD (hyperlipidemia) Code(s): E78.5 - HYPERLIPIDEMIA, UNSPECIFIED Qualifiers: Hyperlipidemia type: pure hypercholesterolemia Qualified Code(s): E78.0 - Pure hypercholesterolemia (5) HTN (hypertension) Code(s): I10 - ESSENTIAL (PRIMARY) HYPERTENSION Qualifiers: Hypertension type: essential hypertension Qualified Code(s): I10 - Essential (primary) hypertension
[2016-03-11] MEDS: ATORVASTATIN CA 20 MG TABLET (FP) PO SCH (22:08)
[2016-03-11] MEDS: KCL 10 MEQ IVPB 100 ML IVPB SCH ×2 (22:09→23:42)
[2016-03-12] MEDS: KCL 10 MEQ IVPB 100 ML IVPB SCH (01:42)
[2016-03-12] MEDS: METRONIDAZOLE 500 MG PREMIXED 100 ML IVPB SCH ×3 (02:42→18:49)
[2016-03-12 07:16] LABS: BASOPHIL 0.7 % (0-2.0); EOSINOPHIL 0.8 % (0-4.5); MCH 30.8 pg (25.7-33.7); MCHC 33.8 g/dl (32.0-35.9); MEAN CELL VOLUME 91.1 fl (80-96); MEAN PLT VOLUME 9.5 fl (7.5-11.1); NEUTROPHILS 74.7 % (42.8-82.8); PLATELET COUNT 305 K/MM3 (134-434); RDW 14.2 % (11.9-15.9); WHITE BLOOD COUNT 14.5 K/mm3 (4.0-10.0)
[2016-03-12 07:47] LABS: ALBUMIN 2.4 g/dl (3.4-5.0); ANION GAP 7 (8-16); CALCIUM 9.1 mg/dL (8.5-10.1); CO2 28 mmol/L (21-32); GLUCOSE,RANDOM 97 mg/dL (74-106)
[2016-03-12 07:50] LABS: ALK PHOS 81 U/L (45-117); BILIRUBIN,TOTAL 0.8 mg/dL (0.2-1.0); CREATININE 1.1 mg/dL (0.7-1.3); SGOT/AST 56 U/L (15-37); SGPT/ALT 63 U/L (12-78); TOT PROT 5.8 g/dl (6.4-8.2)
--- NOTE | 2016-03-12 08:57 | PN ---
Progress Note (short form) - Note Progress Note: As per nursing staff, pt trying to pull out IV/Drain last pm. He is at nursing station eating breakfast(clears) without any nausea/emesis. Vital Signs Period Temp Pulse Resp BP Sys/Pettit Pulse Ox Last 24 Hr 97.2 F-99.1 F 74-86 16-20 115-157/56-82 94-98 JUANI-40ml serosangrenous, non-biliuos PE: GEN: appears comfortable ABD: soft, non-distended, inc tenderness. Inc c/d/i with dermabond. No ecchymosis. CBC, BMP 03/12/16 05:35 03/12/16 05:35 <Shea Lizama - Last Filed: 03/12/16 08:52> - Note Progress Note: doing well caitlin GLORIA advance diet <Dudley Longo - Last Filed: 03/12/16 10:39>
[2016-03-12] MEDS: TAMSULOSIN HCL 0.4 MG CAP.ER.24H (FP) PO SCH (10:30)
[2016-03-12] MEDS: LEVOFLOXACIN 500 MG IVPB 100 ML IVPB SCH (10:30)
[2016-03-12] MEDS: FENOFIBRIC ACID 135 MG CAP PO SCH (10:30)
[2016-03-12] MEDS: METOPROLOL SUCCINATE 25 MG TAB.SR.24H (FP) PO SCH (10:31)
[2016-03-12] MEDS: GABAPENTIN 300 MG CAPSULE (FP) PO SCH ×2 (10:31→21:41)
[2016-03-12] MEDS: PANTOPRAZOLE 40 MG TABLET (FP) PO SCH (10:31)
[2016-03-12] MEDS: SOLIFENACIN SUCCINATE 5 MG TAB (FP) PO SCH (10:31)
[2016-03-12] MEDS: DUTASTERIDE 0.5 MG CAP (FP) PO SCH (10:31)
[2016-03-12] MEDS: HEPARIN NA (PORCINE) 5,000 UNITS/ML 1ML VIAL SQ SCH ×2 (10:31→21:41)
--- NOTE | 2016-03-12 10:36 | PN ---
Progress Note, Physician Chief Complaint: Pt pain controlled, no PONV, no GA complaints. - Current Medication List Current Medications: Active Medications Atorvastatin Calcium (Lipitor -) 20 mg PO HS [facility] Last Admin: 03/11/16 22:08 Dose: 20 mg Dutasteride (Avodart -) 0.5 mg PO DAILY [facility] Fenofibric Acid (Trilipix -) 135 mg PO DAILY [facility] Gabapentin (Neurontin -) 300 mg PO BID [facility] Last Admin: 03/11/16 22:08 Dose: 300 mg Heparin Sodium (Porcine) (Heparin -) 5,000 unit SQ BID [facility] Last Admin: 03/11/16 22:09 Dose: 5,000 unit Hydromorphone HCl (Dilaudid Injection -) 1 mg IVPUSH [id number] PRN PRN Reason: PAIN Stop: 03/14/16 12:20 Last Admin: 03/11/16 12:40 Dose: 0.5 mg Lactated Ringer's (Lactated Ringers Solution) 1,000 mls @ 83 mls/hr IV ASDIR [facility] Last Admin: 03/11/16 14:05 Dose: 83 mls/hr Metronidazole (Flagyl 500mg Premixed Ivpb -) 100 mls @ 100 mls/hr IVPB Q8H-IV [facility] Last Admin: 03/12/16 02:42 Dose: 100 mls/hr Levofloxacin (Levaquin 500 Mg Premixed Ivpb -) 100 mls @ 100 mls/hr IVPB DAILY [facility] Metoprolol Succinate (Toprol Xl -) 25 mg PO DAILY [facility] Morphine Sulfate (Morphine Injection -) 4 mg IVPUSH Q4H PRN PRN Reason: PAIN Last Admin: 03/12/16 06:33 Dose: 4 mg Ondansetron HCl (Zofran Injection) 4 mg IVPB Q8H PRN PRN Reason: NAUSEA Pantoprazole Sodium (Protonix -) 40 mg PO DAILY [facility] Solifenacin (Vesicare -) 5 mg PO DAILY [facility] Tamsulosin HCl (Flomax -) 0.4 mg PO DAILY@0830 [facility] - Objective Vital Signs: Vital Signs Temperature 98.2 F 03/12/16 10:00 Pulse Rate 92 H 03/12/16 10:00 Respiratory Rate 14 03/12/16 10:00 Blood Pressure 130/54 03/12/16 10:00 O2 Sat by Pulse Oximetry (%) 98 03/11/16 13:55 Constitutional: Yes: Well Nourished, No Distress, Calm Musculoskeletal: Yes: WNL Neurological: Yes: WNL, Alert, Oriented Labs: CBC, BMP 03/12/16 05:35 03/12/16 05:35 INR, PTT INR 1.18 (0.82-1.09) H 03/08/16 13:36 Assessment/Plan POD#1 s/p laparascopic cholecystectomy under GA, doing well. D/C from anesthesia care.
[2016-03-12] MEDS: LACTATED RINGERS SOLUTION 1,000 ML IV SCH (12:00)
--- NOTE | 2016-03-12 12:15 | PN ---
Progress Note, Physician History of Present Illness: Tolerating clear liquids post lap cholecystectomy. - Current Medication List Current Medications: Active Medications Atorvastatin Calcium (Lipitor -) 20 mg PO HS [facility] Last Admin: 03/11/16 22:08 Dose: 20 mg Dutasteride (Avodart -) 0.5 mg PO DAILY [facility] Last Admin: 03/12/16 10:31 Dose: 0.5 mg Fenofibric Acid (Trilipix -) 135 mg PO DAILY [facility] Last Admin: 03/12/16 10:30 Dose: 135 mg Gabapentin (Neurontin -) 300 mg PO BID [facility] Last Admin: 03/12/16 10:31 Dose: 300 mg Heparin Sodium (Porcine) (Heparin -) 5,000 unit SQ BID [facility] Last Admin: 03/12/16 10:31 Dose: 5,000 unit Hydromorphone HCl (Dilaudid Injection -) 1 mg IVPUSH [id number] PRN PRN Reason: PAIN Stop: 03/14/16 12:20 Last Admin: 03/11/16 12:40 Dose: 0.5 mg Lactated Ringer's (Lactated Ringers Solution) 1,000 mls @ 83 mls/hr IV ASDIR [facility] Last Admin: 03/11/16 14:05 Dose: 83 mls/hr Metronidazole (Flagyl 500mg Premixed Ivpb -) 100 mls @ 100 mls/hr IVPB Q8H-IV [facility] Last Admin: 03/12/16 10:30 Dose: 100 mls/hr Levofloxacin (Levaquin 500 Mg Premixed Ivpb -) 100 mls @ 100 mls/hr IVPB DAILY [facility] Last Admin: 03/12/16 10:30 Dose: 100 mls/hr Metoprolol Succinate (Toprol Xl -) 25 mg PO DAILY [facility] Last Admin: 03/12/16 10:31 Dose: 25 mg Morphine Sulfate (Morphine Injection -) 4 mg IVPUSH Q4H PRN PRN Reason: PAIN Last Admin: 03/12/16 06:33 Dose: 4 mg Ondansetron HCl (Zofran Injection) 4 mg IVPB Q8H PRN PRN Reason: NAUSEA Pantoprazole Sodium (Protonix -) 40 mg PO DAILY [facility] Last Admin: 03/12/16 10:31 Dose: 40 mg Solifenacin (Vesicare -) 5 mg PO DAILY [facility] Last Admin: 03/12/16 10:31 Dose: 5 mg Tamsulosin HCl (Flomax -) 0.4 mg PO DAILY@0830 [facility] Last Admin: 03/12/16 10:30 Dose: 0.4 mg - Objective Vital Signs: Vital Signs Temperature 98.2 F 03/12/16 10:00 Pulse Rate 92 H 03/12/16 10:00 Respiratory Rate 14 03/12/16 10:00 Blood Pressure 130/54 03/12/16 10:00 O2 Sat by Pulse Oximetry (%) 98 03/11/16 13:55 Constitutional: Yes: No Distress, Calm Neck: Yes: Supple Cardiovascular: Yes: Regular Rate and Rhythm, Other (with ectopic beats) Respiratory: Yes: Regular, CTA Bilaterally Gastrointestinal: Yes: Soft, Hypoactive Bowel Sounds Edema: No Labs: CBC, BMP 03/12/16 05:35 03/12/16 05:35 INR, PTT INR 1.18 (0.82-1.09) H 03/08/16 13:36 - ....Imaging EKG: Report Reviewed (Tele SR, occ PVC) Problem List - Problems (1) Acute pancreatitis Code(s): K85.9 - ACUTE PANCREATITIS, UNSPECIFIED * DO NOT USE * Qualifiers: Pancreatitis type: other Qualified Code(s): K85.8 - Other acute pancreatitis (2) CVA, old, aphasia Code(s): I69.320 - APHASIA FOLLOWING CEREBRAL INFARCTION (3) HLD (hyperlipidemia) Code(s): E78.5 - HYPERLIPIDEMIA, UNSPECIFIED Qualifiers: Hyperlipidemia type: pure hypercholesterolemia Qualified Code(s): E78.0 - Pure hypercholesterolemia (4) HTN (hypertension) Code(s): I10 - ESSENTIAL (PRIMARY) HYPERTENSION Qualifiers: Hypertension type: essential hypertension Qualified Code(s): I10 - Essential (primary) hypertension (5) Cholelithiasis NOS Code(s): K80.20 - CALCULUS OF GALLBLADDER W/O CHOLECYSTITIS W/O OBSTRUCTION (6) Status post laparoscopic cholecystectomy Code(s): Z90.49 - ACQUIRED ABSENCE OF OTHER SPECIFIED PARTS OF DIGESTIVE TRACT Assessment/Plan 1. 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 HTN 4. Cholelithiasis 5. PVC P:1. Continue Lipitor 20 qhs, Trilipx 135 qd, Toprol XL 25 mg QD and Accupril 10 mg QD 2. Echocardiogram to assess LV and valve fxn 3. Resume antiplatelets post-op once hemostasis has been achieved 4. Complete abx course
--- NOTE | 2016-03-12 15:10 | PATH ---
Surgical Pathology Report Patient Name: JAMILA PIERRE [facility]. Rec. #: [id number] /Age/Gender: 1940 (Age: 75) / M Account: [id number] Location: 4 W TELEMETRY U Taken: 03/11/2016 Received: 03/11/2016 Reported: 03/12/2016 Physicians: Dudley Longo M.D. Specimen(s) Received GALLBLADDER Clinical History Gallstones, pancreatitis Final Diagnosis GALLBLADDER, CHOLECYSTECTOMY: CHRONIC CHOLECYSTITIS AND CHOLELITHIASIS. ONE BENIGN LYMPH NODE. Electronically Signed Blake Joyner M.D. Gross Description Received in formalin, labeled "gallbladder" is a 8.0 x 2.8 x 2.8 cm gallbladder with a 0.2 cm in length portion of cystic duct attached. The outer surface is posada-pink and varies from smooth to shaggy. The lumen contains posada, tenacious bile as well as multiple black, irregular choleliths ranging from 0.1-1.0 cm in greatest dimension. The mucosa is posada and velvety. The wall of the gallbladder ranges from 0.1-0.4 cm in thickness. Fx Artist sections are submitted in one cassette. 03/11/201603/11/2016
--- NOTE | 2016-03-12 18:24 | PN ---
GI Progress Note Subjective: GI NOte: Tolerating liquids. NO vomiting. Day #1 s/p lap choly - Objective Vital Signs: Vital Signs Temperature 98.2 F 03/12/16 14:35 Pulse Rate 79 03/12/16 14:35 Respiratory Rate 18 03/12/16 14:35 Blood Pressure 124/50 03/12/16 14:35 O2 Sat by Pulse Oximetry (%) 95 03/12/16 09:00 CBC,CMP WBC 14.5 K/mm3 (4.0-10.0) H 03/12/16 05:35 RBC 4.09 M/mm3 (4.00-5.60) 03/12/16 05:35 Hgb 12.6 GM/dL (11.7-16.9) 03/12/16 05:35 Hct 37.2 % (35.4-49) 03/12/16 05:35 MCV 91.1 fl (80-96) 03/12/16 05:35 MCHC 33.8 g/dl (32.0-35.9) 03/12/16 05:35 RDW 14.2 % (11.9-15.9) 03/12/16 05:35 Plt Count 305 K/MM3 (134-434) D 03/12/16 05:35 MPV 9.5 fl (7.5-11.1) 03/12/16 05:35 Neutrophils % 74.7 % (42.8-82.8) 03/12/16 05:35 Lymphocytes % 16.1 % (8-40) D 03/12/16 05:35 Monocytes % 7.7 % (3.8-10.2) 03/12/16 05:35 Eosinophils % 0.8 % (0-4.5) 03/12/16 05:35 Basophils % 0.7 % (0-2.0) 03/12/16 05:35 Sodium 142 mmol/L (136-145) 03/12/16 05:35 Potassium 4.0 mmol/L (3.5-5.1) 03/12/16 05:35 Chloride 107 mmol/L (98-107) 03/12/16 05:35 Carbon Dioxide 28 mmol/L (21-32) 03/12/16 05:35 Anion Gap 7 (8-16) L 03/12/16 05:35 BUN 18 mg/dL (7-18) 03/12/16 05:35 Creatinine 1.1 mg/dL (0.7-1.3) D 03/12/16 05:35 Creat Clearance w eGFR > 60 (>60) 03/12/16 05:35 Random Glucose 97 mg/dL (74-106) D 03/12/16 05:35 Lactic Acid 1.277 mmol/L (0.4-2.0) 03/08/16 13:36 Calcium 9.1 mg/dL (8.5-10.1) 03/12/16 05:35 Magnesium 1.7 mg/dL (1.8-2.4) L 03/10/16 13:45 Total Bilirubin 0.8 mg/dL (0.2-1.0) 03/12/16 05:35 Direct Bilirubin 0.7 mg/dL (0.0-0.2) H 03/10/16 05:35 AST 56 U/L (15-37) H D 03/12/16 05:35 ALT 63 U/L (12-78) 03/12/16 05:35 Alkaline Phosphatase 81 U/L (45-117) 03/12/16 05:35 Creatine Kinase 244 IU/L (39-308) 03/08/16 13:36 Creatine Kinase Index 0.8 % (0.0-5.0) 03/08/16 13:36 CK-MB (CK-2) 1.775 ng/ml (0.5-3.6) 03/08/16 13:36 CK-MB (CK-2) Rel Index Cancelled 03/08/16 13:36 Troponin I < 0.02 ng/ml (0.00-0.05) 03/08/16 13:36 Total Protein 5.8 g/dl (6.4-8.2) L 03/12/16 05:35 Albumin 2.4 g/dl (3.4-5.0) L 03/12/16 05:35 Triglycerides 127 mg/dL (35-160) 03/09/16 05:35 Cholesterol 105 mg/dL (50-200) 03/09/16 05:35 Total LDL Cholesterol 68 mg/dL (5-100) 03/09/16 05:35 HDL Cholesterol 17 mg/dL (40-60) L 03/09/16 05:35 Lipase 616 U/L (73-393) H 03/09/16 05:35 Constitutional: Calm Gastrointestinal Inspection: Yes: Scars (healing lap holy incisions) ...Auscultate: Yes: Hypoactive Bowel Sounds ...Palpate: Yes: Soft, Other (nontender) Labs: CBC, BMP 03/12/16 05:35 03/12/16 05:35 INR, PTT INR 1.18 (0.82-1.09) H 03/08/16 13:36 Assessment/Plan Day 1 s/p lap choly. LFTs fluctuations are minimal are likely related to surgery. Postop care as per surgical team. Please call us as needed.
--- NOTE | 2016-03-12 21:16 | PN ---
Progress Note, Physician History of Present Illness: No new complaints - Current Medication List Current Medications: Active Medications Atorvastatin Calcium (Lipitor -) 20 mg PO HS [facility] Last Admin: 03/11/16 22:08 Dose: 20 mg Dutasteride (Avodart -) 0.5 mg PO DAILY [facility] Last Admin: 03/12/16 10:31 Dose: 0.5 mg Fenofibric Acid (Trilipix -) 135 mg PO DAILY [facility] Last Admin: 03/12/16 10:30 Dose: 135 mg Gabapentin (Neurontin -) 300 mg PO BID [facility] Last Admin: 03/12/16 10:31 Dose: 300 mg Heparin Sodium (Porcine) (Heparin -) 5,000 unit SQ BID [facility] Last Admin: 03/12/16 10:31 Dose: 5,000 unit Hydromorphone HCl (Dilaudid Injection -) 1 mg IVPUSH [id number] PRN PRN Reason: PAIN Stop: 03/14/16 12:20 Last Admin: 03/11/16 12:40 Dose: 0.5 mg Lactated Ringer's (Lactated Ringers Solution) 1,000 mls @ 83 mls/hr IV ASDIR [facility] Last Admin: 03/12/16 12:00 Dose: Not Given Metronidazole (Flagyl 500mg Premixed Ivpb -) 100 mls @ 100 mls/hr IVPB Q8H-IV [facility] Last Admin: 03/12/16 18:49 Dose: 100 mls/hr Levofloxacin (Levaquin 500 Mg Premixed Ivpb -) 100 mls @ 100 mls/hr IVPB DAILY [facility] Last Admin: 03/12/16 10:30 Dose: 100 mls/hr Metoprolol Succinate (Toprol Xl -) 25 mg PO DAILY [facility] Last Admin: 03/12/16 10:31 Dose: 25 mg Morphine Sulfate (Morphine Injection -) 4 mg IVPUSH Q4H PRN PRN Reason: PAIN Last Admin: 03/12/16 06:33 Dose: 4 mg Ondansetron HCl (Zofran Injection) 4 mg IVPB Q8H PRN PRN Reason: NAUSEA Pantoprazole Sodium (Protonix -) 40 mg PO DAILY [facility] Last Admin: 03/12/16 10:31 Dose: 40 mg Quinapril HCl (Accupril -) 10 mg PO DAILY [facility] Solifenacin (Vesicare -) 5 mg PO DAILY [facility] Last Admin: 03/12/16 10:31 Dose: 5 mg Tamsulosin HCl (Flomax -) 0.4 mg PO DAILY@0830 [facility] Last Admin: 03/12/16 10:30 Dose: 0.4 mg - Objective Vital Signs: Vital Signs Temperature 98.1 F 03/12/16 18:00 Pulse Rate 85 03/12/16 18:00 Respiratory Rate 18 03/12/16 18:00 Blood Pressure 126/63 03/12/16 18:00 O2 Sat by Pulse Oximetry (%) 95 03/12/16 09:00 Neck: Yes: Supple Cardiovascular: Yes: WNL, Regular Rate and Rhythm Respiratory: Yes: WNL, Regular, CTA Bilaterally Gastrointestinal: Yes: Normal Bowel Sounds, Soft Edema: No Labs: CBC, BMP 03/12/16 05:35 03/12/16 05:35 INR, PTT INR 1.18 (0.82-1.09) H 03/08/16 13:36 Problem List - Problems (1) Acute pancreatitis Assessment/Plan: S/P lap choley MRCP showed gallstone pancreatitis Advance diet as per surgery Pt tolerating clears Cont IV levaquin/flagyl WBC increased today Cont to follow wbc ID consult Code(s): K85.9 - ACUTE PANCREATITIS, UNSPECIFIED * DO NOT USE * Qualifiers: Pancreatitis type: other Qualified Code(s): K85.8 - Other acute pancreatitis (2) HTN (hypertension) Assessment/Plan: BP stable Cont toprol/quinipril Code(s): I10 - ESSENTIAL (PRIMARY) HYPERTENSION Qualifiers: Hypertension type: essential hypertension Qualified Code(s): I10 - Essential (primary) hypertension (3) HLD (hyperlipidemia) Assessment/Plan: Cont lipitor/trilipx Code(s): E78.5 - HYPERLIPIDEMIA, UNSPECIFIED Qualifiers: Hyperlipidemia type: pure hypercholesterolemia Qualified Code(s): E78.0 - Pure hypercholesterolemia (4) CVA, old, aphasia Code(s): I69.320 - APHASIA FOLLOWING CEREBRAL INFARCTION (5) Cholelithiasis NOS Code(s): K80.20 - CALCULUS OF GALLBLADDER W/O CHOLECYSTITIS W/O OBSTRUCTION
[2016-03-12] MEDS: ATORVASTATIN CA 20 MG TABLET (FP) PO SCH (21:41)
[2016-03-13] MEDS: METRONIDAZOLE 500 MG PREMIXED 100 ML IVPB SCH ×3 (02:00→15:30)
[2016-03-13 07:57] LABS: BASOPHIL 0.7 % (0-2.0); EOSINOPHIL 1.2 % (0-4.5); MCH 30.8 pg (25.7-33.7); MEAN CELL VOLUME 90.8 fl (80-96); MEAN PLT VOLUME 9.2 fl (7.5-11.1); NEUTROPHILS 78.1 % (42.8-82.8); PLATELET COUNT 309 K/MM3 (134-434); RDW 14.5 % (11.9-15.9); WHITE BLOOD COUNT 14.2 K/mm3 (4.0-10.0)
[2016-03-13 08:05] LABS: ALBUMIN 2.4 g/dl (3.4-5.0); ANION GAP 6 (8-16); CALCIUM 8.5 mg/dL (8.5-10.1); CO2 27 mmol/L (21-32); CREATININE 1.1 mg/dL (0.7-1.3); GLUCOSE,RANDOM 91 mg/dL (74-106); SGOT/AST 45 U/L (15-37); SGPT/ALT 52 U/L (12-78)
[2016-03-13 08:07] LABS: ALK PHOS 71 U/L (45-117); BILIRUBIN,TOTAL 0.7 mg/dL (0.2-1.0); TOT PROT 5.6 g/dl (6.4-8.2)
[2016-03-13] MEDS ORDERED: PT OWN MED DRAWER 7, Y5N ONE (10:25)
[2016-03-13] MEDS: SOLIFENACIN SUCCINATE 5 MG TAB (FP) PO SCH (10:45)
[2016-03-13] MEDS: PANTOPRAZOLE 40 MG TABLET (FP) PO SCH (10:45)
[2016-03-13] MEDS: TAMSULOSIN HCL 0.4 MG CAP.ER.24H (FP) PO SCH (10:46)
[2016-03-13] MEDS: DUTASTERIDE 0.5 MG CAP (FP) PO SCH (10:46)
[2016-03-13] MEDS: METOPROLOL SUCCINATE 25 MG TAB.SR.24H (FP) PO SCH (10:46)
[2016-03-13] MEDS: GABAPENTIN 300 MG CAPSULE (FP) PO SCH ×2 (10:46→22:10)
[2016-03-13] MEDS: QUINAPRIL HCL 10 MG TABLET (FP) PO SCH (10:46)
[2016-03-13] MEDS: HEPARIN NA (PORCINE) 5,000 UNITS/ML 1ML VIAL SQ SCH ×2 (10:46→22:10)
[2016-03-13] MEDS: FENOFIBRIC ACID 135 MG CAP PO SCH (10:47)
--- NOTE | 2016-03-13 10:47 | PN ---
Progress Note, Physician Chief Complaint: ID Day 2 post op Alert NAD NO fever 99.4 Antibiotics Cipro and metronidazole - Current Medication List Current Medications: Active Medications Atorvastatin Calcium (Lipitor -) 20 mg PO HS [facility] Last Admin: 03/12/16 21:41 Dose: 20 mg Dutasteride (Avodart -) 0.5 mg PO DAILY [facility] Last Admin: 03/12/16 10:31 Dose: 0.5 mg Fenofibric Acid (Trilipix -) 135 mg PO DAILY [facility] Last Admin: 03/12/16 10:30 Dose: 135 mg Gabapentin (Neurontin -) 300 mg PO BID [facility] Last Admin: 03/12/16 21:41 Dose: 300 mg Heparin Sodium (Porcine) (Heparin -) 5,000 unit SQ BID [facility] Last Admin: 03/12/16 21:41 Dose: 5,000 unit Hydromorphone HCl (Dilaudid Injection -) 1 mg IVPUSH [id number] PRN PRN Reason: PAIN Stop: 03/14/16 12:20 Last Admin: 03/11/16 12:40 Dose: 0.5 mg Lactated Ringer's (Lactated Ringers Solution) 1,000 mls @ 83 mls/hr IV ASDIR [facility] Last Admin: 03/12/16 12:00 Dose: Not Given Metronidazole (Flagyl 500mg Premixed Ivpb -) 100 mls @ 100 mls/hr IVPB Q8H-IV [facility] Last Admin: 03/13/16 02:00 Dose: 100 mls/hr Levofloxacin (Levaquin 500 Mg Premixed Ivpb -) 100 mls @ 100 mls/hr IVPB DAILY [facility] Last Admin: 03/12/16 10:30 Dose: 100 mls/hr Metoprolol Succinate (Toprol Xl -) 25 mg PO DAILY [facility] Last Admin: 03/12/16 10:31 Dose: 25 mg Morphine Sulfate (Morphine Injection -) 4 mg IVPUSH Q4H PRN PRN Reason: PAIN Last Admin: 03/12/16 06:33 Dose: 4 mg Ondansetron HCl (Zofran Injection) 4 mg IVPB Q8H PRN PRN Reason: NAUSEA Pantoprazole Sodium (Protonix -) 40 mg PO DAILY [facility] Last Admin: 03/12/16 10:31 Dose: 40 mg Quinapril HCl (Accupril -) 10 mg PO DAILY [facility] Solifenacin (Vesicare -) 5 mg PO DAILY [facility] Last Admin: 03/12/16 10:31 Dose: 5 mg Tamsulosin HCl (Flomax -) 0.4 mg PO DAILY@0830 [facility] Last Admin: 03/12/16 10:30 Dose: 0.4 mg - Objective Vital Signs: Vital Signs Temperature 99.4 F 03/13/16 05:38 Pulse Rate 71 03/13/16 05:38 Respiratory Rate 18 03/13/16 05:38 Blood Pressure 114/52 03/13/16 05:38 O2 Sat by Pulse Oximetry (%) 95 03/12/16 21:00 Constitutional: Yes: No Distress Neck: Yes: WNL, Supple Cardiovascular: Yes: S1, S2 Respiratory: Yes: WNL, Regular, CTA Bilaterally Gastrointestinal: Yes: Soft, Other (Surgical wounds). No: Tenderness (d) Labs: CBC, BMP 03/13/16 06:30 03/13/16 06:30 INR, PTT INR 1.18 (0.82-1.09) H 03/08/16 13:36 Problem List - Problems (1) Acute pancreatitis Code(s): K85.9 - ACUTE PANCREATITIS, UNSPECIFIED * DO NOT USE * Qualifiers: Pancreatitis type: other Qualified Code(s): K85.8 - Other acute pancreatitis (2) Status post laparoscopic cholecystectomy Code(s): Z90.49 - ACQUIRED ABSENCE OF OTHER SPECIFIED PARTS OF DIGESTIVE TRACT Assessment/Plan Microbiology 03/09/16 01:00 Urine - Urine - Catheterized Urine Culture - Final NO GROWTH OBTAINED 03/08/16 13:36 Blood - Peripheral Venous Blood Culture - Preliminary NO GROWTH OBTAINED AFTER 96 HOURS, INCUBATION TO CONTINUE FOR 1 DAYS. 03/08/16 13:30 Blood - Peripheral Venous Blood Culture - Preliminary NO GROWTH OBTAINED AFTER 96 HOURS, INCUBATION TO CONTINUE FOR 1 DAYS. Laboratory Tests 03/13/16 03/13/16 06:30 06:30 WBC 14.2 H Hgb 12.4 Hct 36.5 Plt Count 309 BUN 18 Creatinine 1.1 Creat Clearance w eGFR > 60 Assessment Despite mild WBC elevation He looks well Plan STOP ANTIBIOTICS DIscharage if remains afebrile provided surgery agrees Estee EPSTEIN
--- NOTE | 2016-03-13 11:22 | CONS ---
DATE OF CONSULTATION: DATE OF DICTATION: 03/13/2016 HISTORY OF PRESENT ILLNESS: This is a 75-year-old [place] male who I am asked to see 2 days post laparoscopic cholecystectomy after he was initially admitted on March 08 with abdominal pain. He was seen in consultation by Chong Andrews DO on March 09 with a diagnosis of gallstone pancreatitis. On the , he was taken to the operating room for a laparoscopic cholecystectomy. The operative report was reviewed, indicating a laparoscopic cholecystectomy with no complications. A JUANI drain was left in place, is now removed. The patient has been afebrile postop, receiving Levaquin, metronidazole. He has no fever or chills, abdominal pain, or urinary complaints. His white count is mildly elevated. Cultures of blood and urine are no growth. PAST MEDICAL HISTORY: Includes prior CVAs with a facial droop. MEDICATIONS AT HOME: Aspirin, Nexium, fenofibrate, gabapentin, quinapril, simvastatin, tamsulosin. ALLERGIES: None known. SOCIAL HISTORY: Former smoker, originally from [place]. No history of alcohol use. FAMILY HISTORY: Patient unable to provide. REVIEW OF SYSTEMS: Respiratory: No cough, shortness of breath, hemoptysis. Cardiac: No chest pain, palpitations, syncope, murmur. Gastrointestinal: No abdominal pain, vomiting, diarrhea. Genitourinary: No dysuria, hematuria, urinary frequency. PHYSICAL EXAMINATION: General: A heavy-set male, alert, in no acute distress. Vital Signs: Temperature 99.4, pulse 71, blood pressure 114/52, respirations 18. Neck: Supple. Lungs: Clear to P&A. Heart: S1, S2. Regular rhythm without audible murmur. Abdomen: Soft. No localized tenderness. Postoperative wounds. No drain at this time. Extremities: Without edema. LABORATORY DATA: The white count was 14.2, hemoglobin 12.4, platelets of 309. INR 1.1. BUN of 18, creatinine 1.1. AST of 45, bilirubin 0.7. Urinalysis dated March 09: RBCs 2, WBCs 11. Cultures of blood and urine: No growth. Initial chest x-ray dated March 08 shows no acute pathology. ASSESSMENT: Patient clinically stable day 2 postoperative uneventful laparoscopic cholecystectomy. He is on ciprofloxacin and metronidazole. At this point, I see no reason to continue antibiotics, would suggest discontinuing both medications at this time, and if he remains stable, discharge planning per General Surgery. Otherwise, we will observe for any fever or further white blood count elevation. BENSON LÓPEZ M.D. [id number]
[2016-03-13] MEDS: LEVOFLOXACIN 500 MG IVPB 100 ML IVPB SCH (12:00)
--- NOTE | 2016-03-13 16:21 | PN ---
Progress Note, Physician Chief Complaint: Events noted Not in distress History of Present Illness: Patient was seen and examined. Chart was reviewed. Awake Denies chest pain, SOB or palpitations Appears comfortable - Current Medication List Current Medications: Active Medications Atorvastatin Calcium (Lipitor -) 20 mg PO HS [facility] Last Admin: 03/12/16 21:41 Dose: 20 mg Dutasteride (Avodart -) 0.5 mg PO DAILY [facility] Last Admin: 03/13/16 10:46 Dose: 0.5 mg Fenofibric Acid (Trilipix -) 135 mg PO DAILY [facility] Last Admin: 03/13/16 10:47 Dose: 135 mg Gabapentin (Neurontin -) 300 mg PO BID [facility] Last Admin: 03/13/16 10:46 Dose: 300 mg Heparin Sodium (Porcine) (Heparin -) 5,000 unit SQ BID [facility] Last Admin: 03/13/16 10:46 Dose: 5,000 unit Hydromorphone HCl (Dilaudid Injection -) 1 mg IVPUSH [id number] PRN PRN Reason: PAIN Stop: 03/14/16 12:20 Last Admin: 03/11/16 12:40 Dose: 0.5 mg Lactated Ringer's (Lactated Ringers Solution) 1,000 mls @ 83 mls/hr IV ASDIR [facility] Last Admin: 03/12/16 12:00 Dose: Not Given Metoprolol Succinate (Toprol Xl -) 25 mg PO DAILY [facility] Last Admin: 03/13/16 10:46 Dose: 25 mg Morphine Sulfate (Morphine Injection -) 4 mg IVPUSH Q4H PRN PRN Reason: PAIN Last Admin: 03/12/16 06:33 Dose: 4 mg Ondansetron HCl (Zofran Injection) 4 mg IVPB Q8H PRN PRN Reason: NAUSEA Pantoprazole Sodium (Protonix -) 40 mg PO DAILY [facility] Last Admin: 03/13/16 10:45 Dose: 40 mg Quinapril HCl (Accupril -) 10 mg PO DAILY [facility] Last Admin: 03/13/16 10:46 Dose: 10 mg Solifenacin (Vesicare -) 5 mg PO DAILY [facility] Last Admin: 03/13/16 10:45 Dose: 5 mg Tamsulosin HCl (Flomax -) 0.4 mg PO DAILY@0830 [facility] Last Admin: 03/13/16 10:46 Dose: 0.4 mg - Objective Vital Signs: Vital Signs Temperature 98.4 F 03/13/16 14:19 Pulse Rate 80 03/13/16 14:19 Respiratory Rate 20 03/13/16 14:19 Blood Pressure 105/56 03/13/16 14:19 O2 Sat by Pulse Oximetry (%) 95 03/12/16 21:00 Neck: Yes: Supple Cardiovascular: Yes: Regular Rate and Rhythm, S1, S2 Respiratory: Yes: CTA Bilaterally Gastrointestinal: Yes: Soft. No: Tenderness Edema: No Labs: CBC, BMP 03/13/16 06:30 03/13/16 06:30 INR, PTT Problem List - Problems (1) Acute pancreatitis Code(s): K85.9 - ACUTE PANCREATITIS, UNSPECIFIED * DO NOT USE * Qualifiers: Pancreatitis type: other Qualified Code(s): K85.8 - Other acute pancreatitis (2) CVA, old, aphasia Code(s): I69.320 - APHASIA FOLLOWING CEREBRAL INFARCTION (3) Cholelithiasis NOS Code(s): K80.20 - CALCULUS OF GALLBLADDER W/O CHOLECYSTITIS W/O OBSTRUCTION (4) HLD (hyperlipidemia) Code(s): E78.5 - HYPERLIPIDEMIA, UNSPECIFIED Qualifiers: Hyperlipidemia type: pure hypercholesterolemia Qualified Code(s): E78.0 - Pure hypercholesterolemia (5) HTN (hypertension) Code(s): I10 - ESSENTIAL (PRIMARY) HYPERTENSION Qualifiers: Hypertension type: essential hypertension Qualified Code(s): I10 - Essential (primary) hypertension (6) Status post laparoscopic cholecystectomy Code(s): Z90.49 - ACQUIRED ABSENCE OF OTHER SPECIFIED PARTS OF DIGESTIVE TRACT Assessment/Plan 1. 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 HTN 4. Cholelithiasis 5. PVC PLAN: 1. Clinically stable 2. Transthoracic echocardiography at some point (not done yet) - can be done as outpatient 3. Resume ASA +/- Plavix post-op once hemostasis has been achieved 4. Continue Toprol XL 25 mg QD and Accupril 10 mg QD 5. Off Antibiotic as per ID Further plans are to follow Anand Araya MD
[2016-03-13] MEDS: LACTATED RINGERS SOLUTION 1,000 ML IV SCH (19:17)
--- NOTE | 2016-03-13 19:36 | PN ---
Progress Note, Physician Chief Complaint: No new Complaints - Current Medication List Current Medications: Active Medications Atorvastatin Calcium (Lipitor -) 20 mg PO HS [facility] Last Admin: 03/12/16 21:41 Dose: 20 mg Dutasteride (Avodart -) 0.5 mg PO DAILY [facility] Last Admin: 03/13/16 10:46 Dose: 0.5 mg Fenofibric Acid (Trilipix -) 135 mg PO DAILY [facility] Last Admin: 03/13/16 10:47 Dose: 135 mg Gabapentin (Neurontin -) 300 mg PO BID [facility] Last Admin: 03/13/16 10:46 Dose: 300 mg Heparin Sodium (Porcine) (Heparin -) 5,000 unit SQ BID [facility] Last Admin: 03/13/16 10:46 Dose: 5,000 unit Hydromorphone HCl (Dilaudid Injection -) 1 mg IVPUSH [id number] PRN PRN Reason: PAIN Stop: 03/14/16 12:20 Last Admin: 03/11/16 12:40 Dose: 0.5 mg Lactated Ringer's (Lactated Ringers Solution) 1,000 mls @ 83 mls/hr IV ASDIR [facility] Last Admin: 03/13/16 19:17 Dose: Not Given Metoprolol Succinate (Toprol Xl -) 25 mg PO DAILY [facility] Last Admin: 03/13/16 10:46 Dose: 25 mg Morphine Sulfate (Morphine Injection -) 4 mg IVPUSH Q4H PRN PRN Reason: PAIN Last Admin: 03/12/16 06:33 Dose: 4 mg Ondansetron HCl (Zofran Injection) 4 mg IVPB Q8H PRN PRN Reason: NAUSEA Pantoprazole Sodium (Protonix -) 40 mg PO DAILY [facility] Last Admin: 03/13/16 10:45 Dose: 40 mg Quinapril HCl (Accupril -) 10 mg PO DAILY [facility] Last Admin: 03/13/16 10:46 Dose: 10 mg Solifenacin (Vesicare -) 5 mg PO DAILY [facility] Last Admin: 03/13/16 10:45 Dose: 5 mg Tamsulosin HCl (Flomax -) 0.4 mg PO DAILY@0830 [facility] Last Admin: 03/13/16 10:46 Dose: 0.4 mg - Objective Vital Signs: Vital Signs Temperature 98.7 F 12/31/16 17:19 Pulse Rate 76 03/13/16 17:19 Respiratory Rate 20 03/13/16 17:19 Blood Pressure 114/65 03/13/16 17:19 O2 Sat by Pulse Oximetry (%) 99 03/13/16 09:00 Cardiovascular: Yes: WNL, Regular Rate and Rhythm Respiratory: Yes: WNL, Regular, CTA Bilaterally Gastrointestinal: Yes: WNL, Normal Bowel Sounds, Soft Labs: CBC, BMP 03/13/16 06:30 03/13/16 06:30 INR, PTT INR 1.18 (0.82-1.09) H 03/08/16 13:36 Problem List - Problems (1) Acute pancreatitis Code(s): K85.9 - ACUTE PANCREATITIS, UNSPECIFIED * DO NOT USE * Qualifiers: Pancreatitis type: other (2) HTN (hypertension) Code(s): I10 - ESSENTIAL (PRIMARY) HYPERTENSION (3) HLD (hyperlipidemia) Code(s): E78.5 - HYPERLIPIDEMIA, UNSPECIFIED (4) CVA, old, aphasia Code(s): I69.320 - APHASIA FOLLOWING CEREBRAL INFARCTION (5) Cholelithiasis NOS Code(s): K80.20 - CALCULUS OF GALLBLADDER W/O CHOLECYSTITIS W/O OBSTRUCTION
[2016-03-13] MEDS: ATORVASTATIN CA 20 MG TABLET (FP) PO SCH (22:10)
[2016-03-14] MEDS ORDERED: PT OWN MED DRAWER 7, Y5N ONE ×3 (08:30→09:39)
[2016-03-14] MEDS: PANTOPRAZOLE 40 MG TABLET (FP) PO SCH (09:12)
[2016-03-14] MEDS: GABAPENTIN 300 MG CAPSULE (FP) PO SCH ×2 (09:12→21:09)
[2016-03-14] MEDS: HEPARIN NA (PORCINE) 5,000 UNITS/ML 1ML VIAL SQ SCH ×2 (09:12→21:10)
[2016-03-14] MEDS: TAMSULOSIN HCL 0.4 MG CAP.ER.24H (FP) PO SCH (09:12)
[2016-03-14] MEDS: METOPROLOL SUCCINATE 25 MG TAB.SR.24H (FP) PO SCH (09:17)
--- NOTE | 2016-03-14 09:24 | PN ---
Progress Note, Physician Chief Complaint: ID Day 3 post op still not eating Off antibiotics - Current Medication List Current Medications: Active Medications Atorvastatin Calcium (Lipitor -) 20 mg PO HS [facility] Last Admin: 03/13/16 22:10 Dose: 20 mg Dutasteride (Avodart -) 0.5 mg PO DAILY [facility] Last Admin: 03/13/16 10:46 Dose: 0.5 mg Fenofibric Acid (Trilipix -) 135 mg PO DAILY [facility] Last Admin: 03/13/16 10:47 Dose: 135 mg Gabapentin (Neurontin -) 300 mg PO BID [facility] Last Admin: 03/14/16 09:12 Dose: 300 mg Heparin Sodium (Porcine) (Heparin -) 5,000 unit SQ BID [facility] Last Admin: 03/14/16 09:12 Dose: 5,000 unit Hydromorphone HCl (Dilaudid Injection -) 1 mg IVPUSH [id number] PRN PRN Reason: PAIN Stop: 03/14/16 12:20 Last Admin: 03/11/16 12:40 Dose: 0.5 mg Lactated Ringer's (Lactated Ringers Solution) 1,000 mls @ 83 mls/hr IV ASDIR [facility] Last Admin: 03/13/16 19:17 Dose: Not Given Metoprolol Succinate (Toprol Xl -) 25 mg PO DAILY [facility] Last Admin: 03/14/16 09:17 Dose: 25 mg Morphine Sulfate (Morphine Injection -) 4 mg IVPUSH Q4H PRN PRN Reason: PAIN Last Admin: 03/12/16 06:33 Dose: 4 mg Ondansetron HCl (Zofran Injection) 4 mg IVPB Q8H PRN PRN Reason: NAUSEA Pantoprazole Sodium (Protonix -) 40 mg PO DAILY [facility] Last Admin: 03/14/16 09:12 Dose: 40 mg Quinapril HCl (Accupril -) 10 mg PO DAILY [facility] Last Admin: 03/13/16 10:46 Dose: 10 mg Solifenacin (Vesicare -) 5 mg PO DAILY [facility] Last Admin: 03/13/16 10:45 Dose: 5 mg Tamsulosin HCl (Flomax -) 0.4 mg PO DAILY@0830 [facility] Last Admin: 03/14/16 09:12 Dose: 0.4 mg - Objective Vital Signs: Vital Signs Temperature 99.2 F 03/14/16 05:33 Pulse Rate 70 03/14/16 05:33 Respiratory Rate 18 03/14/16 05:33 Blood Pressure 112/70 03/14/16 05:33 O2 Sat by Pulse Oximetry (%) 95 03/13/16 22:00 HENT: Yes: WNL, Atraumatic Neck: Yes: WNL, Supple Cardiovascular: Yes: Regular Rate and Rhythm, S1, S2 Respiratory: Yes: WNL, Regular, CTA Bilaterally Gastrointestinal: Yes: WNL, Normal Bowel Sounds, Soft Edema: No Labs: CBC, BMP 03/13/16 06:30 03/13/16 06:30 INR, PTT INR 1.18 (0.82-1.09) H 03/08/16 13:36 Problem List - Problems (1) Acute pancreatitis Code(s): K85.9 - ACUTE PANCREATITIS, UNSPECIFIED * DO NOT USE * Qualifiers: Pancreatitis type: other Qualified Code(s): K85.8 - Other acute pancreatitis (2) Status post laparoscopic cholecystectomy Code(s): Z90.49 - ACQUIRED ABSENCE OF OTHER SPECIFIED PARTS OF DIGESTIVE TRACT Assessment/Plan Assessment Day 3 post op Plan Advance diet clear then solid if tolerated Discharge planning Estee EPSTEIN
[2016-03-14] MEDS: QUINAPRIL HCL 10 MG TABLET (FP) PO SCH ×2 (09:40→14:32)
[2016-03-14] MEDS: FENOFIBRIC ACID 135 MG CAP PO SCH (09:40)
[2016-03-14] MEDS: DUTASTERIDE 0.5 MG CAP (FP) PO SCH (09:40)
[2016-03-14] MEDS: SOLIFENACIN SUCCINATE 5 MG TAB (FP) PO SCH (09:40)
[2016-03-14] MEDS: LACTATED RINGERS SOLUTION 1,000 ML IV SCH (14:32)
--- NOTE | 2016-03-14 16:12 | PN ---
Progress Note, Physician History of Present Illness: Pt not ambulating Pt tolerating diet(full liquids) - Current Medication List Current Medications: Active Medications Atorvastatin Calcium (Lipitor -) 20 mg PO HS [facility] Last Admin: 03/13/16 22:10 Dose: 20 mg Dutasteride (Avodart -) 0.5 mg PO DAILY [facility] Last Admin: 03/14/16 09:40 Dose: 0.5 mg Fenofibric Acid (Trilipix -) 135 mg PO DAILY [facility] Last Admin: 03/14/16 09:40 Dose: 135 mg Gabapentin (Neurontin -) 300 mg PO BID [facility] Last Admin: 03/14/16 09:12 Dose: 300 mg Heparin Sodium (Porcine) (Heparin -) 5,000 unit SQ BID [facility] Last Admin: 03/14/16 09:12 Dose: 5,000 unit Lactated Ringer's (Lactated Ringers Solution) 1,000 mls @ 83 mls/hr IV ASDIR [facility] Last Admin: 03/14/16 14:32 Dose: Not Given Metoprolol Succinate (Toprol Xl -) 25 mg PO DAILY [facility] Last Admin: 03/14/16 09:17 Dose: 25 mg Ondansetron HCl (Zofran Injection) 4 mg IVPB Q8H PRN PRN Reason: NAUSEA Pantoprazole Sodium (Protonix -) 40 mg PO DAILY [facility] Last Admin: 03/14/16 09:12 Dose: 40 mg Quinapril HCl (Accupril -) 10 mg PO DAILY [facility] Last Admin: 03/14/16 14:32 Dose: 10 mg Solifenacin (Vesicare -) 5 mg PO DAILY [facility] Last Admin: 03/14/16 09:40 Dose: 5 mg Tamsulosin HCl (Flomax -) 0.4 mg PO DAILY@0830 [facility] Last Admin: 03/14/16 09:12 Dose: 0.4 mg - Objective Vital Signs: Vital Signs Temperature 97.4 F L 03/14/16 14:05 Pulse Rate 87 03/14/16 14:05 Respiratory Rate 18 03/14/16 14:05 Blood Pressure 113/60 03/14/16 14:05 O2 Sat by Pulse Oximetry (%) 96 03/14/16 09:00 Constitutional: Yes: Well Nourished Neck: Yes: Supple Cardiovascular: Yes: WNL, Regular Rate and Rhythm Respiratory: Yes: WNL, Regular, CTA Bilaterally Gastrointestinal: Yes: Normal Bowel Sounds, Soft Edema: No Labs: CBC, BMP 03/13/16 06:30 03/13/16 06:30 INR, PTT INR 1.18 (0.82-1.09) H 03/08/16 13:36 Problem List - Problems (1) Acute pancreatitis Assessment/Plan: S/P lap choley MRCP showed gallstone pancreatitis Advance diet ID consult for elevated wbc wc is to be repeated in am PT eval for dc planning Code(s): K85.9 - ACUTE PANCREATITIS, UNSPECIFIED * DO NOT USE * Qualifiers: Pancreatitis type: other Qualified Code(s): K85.8 - Other acute pancreatitis (2) HTN (hypertension) Assessment/Plan: BP stable Cont toprol/quinipril Code(s): I10 - ESSENTIAL (PRIMARY) HYPERTENSION Qualifiers: Hypertension type: essential hypertension Qualified Code(s): I10 - Essential (primary) hypertension (3) HLD (hyperlipidemia) Assessment/Plan: Cont lipitor/trilipx Code(s): E78.5 - HYPERLIPIDEMIA, UNSPECIFIED Qualifiers: Hyperlipidemia type: pure hypercholesterolemia Qualified Code(s): E78.0 - Pure hypercholesterolemia (4) CVA, old, aphasia Code(s): I69.320 - APHASIA FOLLOWING CEREBRAL INFARCTION (5) Cholelithiasis NOS Code(s): K80.20 - CALCULUS OF GALLBLADDER W/O CHOLECYSTITIS W/O OBSTRUCTION Assessment/Plan 1. CAD Restart plavix/asa
--- NOTE | 2016-03-14 17:36 | PN ---
Progress Note, Physician Chief Complaint: Events noted Not in distress History of Present Illness: Patient was seen and examined. Chart was reviewed. Denies chest pain, SOB or palpitations Appears comfortable - Current Medication List Current Medications: Active Medications Atorvastatin Calcium (Lipitor -) 20 mg PO HS [facility] Last Admin: 03/13/16 22:10 Dose: 20 mg Dutasteride (Avodart -) 0.5 mg PO DAILY [facility] Last Admin: 03/14/16 09:40 Dose: 0.5 mg Fenofibric Acid (Trilipix -) 135 mg PO DAILY [facility] Last Admin: 03/14/16 09:40 Dose: 135 mg Gabapentin (Neurontin -) 300 mg PO BID [facility] Last Admin: 03/14/16 09:12 Dose: 300 mg Heparin Sodium (Porcine) (Heparin -) 5,000 unit SQ BID [facility] Last Admin: 03/14/16 09:12 Dose: 5,000 unit Lactated Ringer's (Lactated Ringers Solution) 1,000 mls @ 83 mls/hr IV ASDIR [facility] Last Admin: 03/14/16 14:32 Dose: Not Given Metoprolol Succinate (Toprol Xl -) 25 mg PO DAILY [facility] Last Admin: 03/14/16 09:17 Dose: 25 mg Ondansetron HCl (Zofran Injection) 4 mg IVPB Q8H PRN PRN Reason: NAUSEA Pantoprazole Sodium (Protonix -) 40 mg PO DAILY [facility] Last Admin: 03/14/16 09:12 Dose: 40 mg Quinapril HCl (Accupril -) 10 mg PO DAILY [facility] Last Admin: 03/14/16 14:32 Dose: 10 mg Solifenacin (Vesicare -) 5 mg PO DAILY [facility] Last Admin: 03/14/16 09:40 Dose: 5 mg Tamsulosin HCl (Flomax -) 0.4 mg PO DAILY@0830 [facility] Last Admin: 03/14/16 09:12 Dose: 0.4 mg - Objective Vital Signs: Vital Signs Temperature 97.4 F L 03/14/16 14:05 Pulse Rate 87 03/14/16 14:05 Respiratory Rate 18 03/14/16 14:05 Blood Pressure 113/60 03/14/16 14:05 O2 Sat by Pulse Oximetry (%) 96 03/14/16 09:00 Neck: Yes: Supple Cardiovascular: Yes: Regular Rate and Rhythm, S1, S2 Respiratory: Yes: CTA Bilaterally Gastrointestinal: Yes: Normal Bowel Sounds, Soft. No: Tenderness Edema: No Problem List - Problems (1) Acute pancreatitis Code(s): K85.9 - ACUTE PANCREATITIS, UNSPECIFIED * DO NOT USE * Qualifiers: Pancreatitis type: other Qualified Code(s): K85.8 - Other acute pancreatitis (2) CVA, old, aphasia Code(s): I69.320 - APHASIA FOLLOWING CEREBRAL INFARCTION (3) Cholelithiasis NOS Code(s): K80.20 - CALCULUS OF GALLBLADDER W/O CHOLECYSTITIS W/O OBSTRUCTION (4) HLD (hyperlipidemia) Code(s): E78.5 - HYPERLIPIDEMIA, UNSPECIFIED Qualifiers: Hyperlipidemia type: pure hypercholesterolemia Qualified Code(s): E78.0 - Pure hypercholesterolemia (5) HTN (hypertension) Code(s): I10 - ESSENTIAL (PRIMARY) HYPERTENSION Qualifiers: Hypertension type: essential hypertension Qualified Code(s): I10 - Essential (primary) hypertension (6) Status post laparoscopic cholecystectomy Code(s): Z90.49 - ACQUIRED ABSENCE OF OTHER SPECIFIED PARTS OF DIGESTIVE TRACT Assessment/Plan 1. 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 HTN 4. Cholelithiasis 5. PVC PLAN: 1. Transthoracic echocardiography at some point (not done yet) - can be done as outpatient 2. Resume ASA +/- Plavix if not contraindicated 3. Continue Toprol XL 25 mg QD and Accupril 10 mg QD Further plans are to follow Anand rAaya MD
[2016-03-14] MEDS: ATORVASTATIN CA 20 MG TABLET (FP) PO SCH (21:09)
[2016-03-15 07:42] LABS: BASOPHIL 0.5 % (0-2.0); EOSINOPHIL 0.5 % (0-4.5); MCH 30.4 pg (25.7-33.7); MCHC 33.6 g/dl (32.0-35.9); MEAN CELL VOLUME 90.7 fl (80-96); MEAN PLT VOLUME 8.6 fl (7.5-11.1); NEUTROPHILS 75.9 % (42.8-82.8); PLATELET COUNT 343 K/MM3 (134-434); RDW 14.4 % (11.9-15.9); WHITE BLOOD COUNT 12.7 K/mm3 (4.0-10.0)
[2016-03-15 08:08] LABS: ALBUMIN 2.5 g/dl (3.4-5.0); ANION GAP 0 (8-16); CALCIUM 8.9 mg/dL (8.5-10.1); CO2 26 mmol/L (21-32); GLUCOSE,RANDOM 106 mg/dL (74-106)
[2016-03-15 08:11] LABS: ALK PHOS 59 U/L (45-117); BILIRUBIN,TOTAL 0.5 mg/dL (0.2-1.0); CREATININE 1.1 mg/dL (0.7-1.3); SGOT/AST 28 U/L (15-37); SGPT/ALT 37 U/L (12-78); TOT PROT 5.7 g/dl (6.4-8.2)
--- NOTE | 2016-03-15 09:28 | PN ---
Progress Note (short form) - Note Progress Note: ID Afebrile Off antibiotics Selected Entries 03/15/16 05:23 Temperature 98.6 F Pulse Rate 75 Respiratory 20 Rate Blood Pressure 136/50 Abd soft nontender Microbiology 03/09/16 01:00 Urine - Urine - Catheterized Urine Culture - Final NO GROWTH OBTAINED 03/08/16 13:36 Blood - Peripheral Venous Blood Culture - Final NO GROWTH AFTER 5 DAYS INCUBATION 03/08/16 13:30 Blood - Peripheral Venous Blood Culture - Final NO GROWTH AFTER 5 DAYS INCUBATION Laboratory Tests 03/15/16 03/15/16 06:20 06:20 WBC 12.7 H Hgb 12.8 Hct 38.2 Plt Count 343 BUN 22 H D Creatinine 1.1 Creat Clearance w eGFR > 60 Assessment Post cholcystectomy Plan Discharge planning Estee EPSTEIN Problem List - Problems (1) Acute pancreatitis Code(s): K85.9 - ACUTE PANCREATITIS, UNSPECIFIED * DO NOT USE * Qualifiers: Pancreatitis type: other Qualified Code(s): K85.8 - Other acute pancreatitis (2) Status post laparoscopic cholecystectomy Code(s): Z90.49 - ACQUIRED ABSENCE OF OTHER SPECIFIED PARTS OF DIGESTIVE TRACT
[2016-03-15] MEDS: CLOPIDOGREL BISULFATE 75 MG TABLET (FP) PO SCH (10:36)
[2016-03-15] MEDS: PANTOPRAZOLE 40 MG TABLET (FP) PO SCH (10:36)
[2016-03-15] MEDS: GABAPENTIN 300 MG CAPSULE (FP) PO SCH ×2 (10:36→22:38)
[2016-03-15] MEDS: ASPIRIN COATED 81 MG TABLET.EC PO SCH (10:36)
[2016-03-15] MEDS: TAMSULOSIN HCL 0.4 MG CAP.ER.24H (FP) PO SCH (10:36)
[2016-03-15] MEDS: FENOFIBRIC ACID 135 MG CAP PO SCH (10:37)
[2016-03-15] MEDS: SOLIFENACIN SUCCINATE 5 MG TAB (FP) PO SCH (10:37)
[2016-03-15] MEDS: QUINAPRIL HCL 10 MG TABLET (FP) PO SCH (10:40)
[2016-03-15] MEDS: HEPARIN NA (PORCINE) 5,000 UNITS/ML 1ML VIAL SQ SCH ×2 (10:41→22:38)
[2016-03-15] MEDS: DUTASTERIDE 0.5 MG CAP (FP) PO SCH (10:41)
[2016-03-15] MEDS: METOPROLOL SUCCINATE 25 MG TAB.SR.24H (FP) PO SCH (10:44)
--- NOTE | 2016-03-15 12:26 | PN ---
Progress Note, Physician Chief Complaint: Events noted Not in distress History of Present Illness: Patient was seen and examined. Chart was reviewed. Denies chest pain, SOB or palpitations Appears comfortable - Current Medication List Current Medications: Active Medications Aspirin (Ecotrin -) [address] [facility] Last Admin: 03/15/16 10:36 Dose: 81 mg Atorvastatin Calcium (Lipitor -) [address] [facility] Last Admin: 03/14/16 21:09 Dose: 20 mg Clopidogrel Bisulfate (Plavix -) [address] [facility] Last Admin: 03/15/16 10:36 Dose: 75 mg Dutasteride (Avodart -) 0.[address] [facility] Last Admin: 03/15/16 10:41 Dose: 0.5 mg Fenofibric Acid (Trilipix -) [address] [facility] Last Admin: 03/15/16 10:37 Dose: 135 mg Gabapentin (Neurontin -) [address] [facility] Last Admin: 03/15/16 10:36 Dose: 300 mg Heparin Sodium (Porcine) (Heparin -) 5,[address] [facility] Last Admin: 03/15/16 10:41 Dose: 5,000 unit Metoprolol Succinate (Toprol Xl -) [address] [facility] Last Admin: 03/15/16 10:44 Dose: 25 mg Ondansetron HCl (Zofran Injection) 4 mg IVPB Q8H PRN PRN Reason: NAUSEA Pantoprazole Sodium (Protonix -) [address] [facility] Last Admin: 03/15/16 10:36 Dose: 40 mg Quinapril HCl (Accupril -) [address] [facility] Last Admin: 03/15/16 10:40 Dose: 10 mg Solifenacin (Vesicare -) [address] [facility] Last Admin: 03/15/16 10:37 Dose: 5 mg Tamsulosin HCl (Flomax -) 0.4 mg PO DAILY@0830 [facility] Last Admin: 03/15/16 10:36 Dose: 0.4 mg - Objective Vital Signs: Vital Signs Temperature 98.6 F 03/15/16 05:23 Pulse Rate 75 03/15/16 05:23 Respiratory Rate 20 03/15/16 05:23 Blood Pressure 136/50 03/15/16 05:23 O2 Sat by Pulse Oximetry (%) 96 03/14/16 21:00 Neck: Yes: Supple Cardiovascular: Yes: Regular Rate and Rhythm, S1, S2 Respiratory: Yes: CTA Bilaterally Gastrointestinal: Yes: Normal Bowel Sounds, Soft. No: Tenderness Edema: No Labs: CBC, BMP 03/15/16 06:20 03/15/16 06:20 Problem List - Problems (1) Acute pancreatitis Code(s): K85.9 - ACUTE PANCREATITIS, UNSPECIFIED * DO NOT USE * Qualifiers: Pancreatitis type: other Qualified Code(s): K85.8 - Other acute pancreatitis (2) CVA, old, aphasia Code(s): I69.320 - APHASIA FOLLOWING CEREBRAL INFARCTION (3) Cholelithiasis NOS Code(s): K80.20 - CALCULUS OF GALLBLADDER W/O CHOLECYSTITIS W/O OBSTRUCTION (4) HLD (hyperlipidemia) Code(s): E78.5 - HYPERLIPIDEMIA, UNSPECIFIED Qualifiers: Hyperlipidemia type: pure hypercholesterolemia Qualified Code(s): E78.0 - Pure hypercholesterolemia (5) HTN (hypertension) Code(s): I10 - ESSENTIAL (PRIMARY) HYPERTENSION Qualifiers: Hypertension type: essential hypertension Qualified Code(s): I10 - Essential (primary) hypertension (6) Status post laparoscopic cholecystectomy Code(s): Z90.49 - ACQUIRED ABSENCE OF OTHER SPECIFIED PARTS OF DIGESTIVE TRACT Assessment/Plan 1. 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 HTN 4. Cholelithiasis 5. PVC PLAN: 1. Transthoracic echocardiography at some point (not done yet) - can be done as outpatient 2. Continue ASA +/- Plavix if not contraindicated 3. Continue Toprol XL 25 mg QD and Accupril 10 mg QD Discharge planning Anand Araya MD
--- NOTE | 2016-03-15 20:57 | PN ---
Progress Note, Physician History of Present Illness: No new complaints - Current Medication List Current Medications: Active Medications Aspirin (Ecotrin -) 81 mg PO DAILY [facility] Last Admin: 03/15/16 10:36 Dose: 81 mg Atorvastatin Calcium (Lipitor -) 20 mg PO HS [facility] Last Admin: 03/14/16 21:09 Dose: 20 mg Clopidogrel Bisulfate (Plavix -) 75 mg PO DAILY [facility] Last Admin: 03/15/16 10:36 Dose: 75 mg Dutasteride (Avodart -) 0.5 mg PO DAILY [facility] Last Admin: 03/15/16 10:41 Dose: 0.5 mg Fenofibric Acid (Trilipix -) 135 mg PO DAILY [facility] Last Admin: 03/15/16 10:37 Dose: 135 mg Gabapentin (Neurontin -) 300 mg PO BID [facility] Last Admin: 03/15/16 10:36 Dose: 300 mg Heparin Sodium (Porcine) (Heparin -) 5,000 unit SQ BID [facility] Last Admin: 03/15/16 10:41 Dose: 5,000 unit Metoprolol Succinate (Toprol Xl -) 25 mg PO DAILY [facility] Last Admin: 03/15/16 10:44 Dose: 25 mg Ondansetron HCl (Zofran Injection) 4 mg IVPB Q8H PRN PRN Reason: NAUSEA Pantoprazole Sodium (Protonix -) 40 mg PO DAILY [facility] Last Admin: 03/15/16 10:36 Dose: 40 mg Quinapril HCl (Accupril -) 10 mg PO DAILY [facility] Last Admin: 03/15/16 10:40 Dose: 10 mg Solifenacin (Vesicare -) 5 mg PO DAILY [facility] Last Admin: 03/15/16 10:37 Dose: 5 mg Tamsulosin HCl (Flomax -) 0.4 mg PO DAILY@0830 [facility] Last Admin: 03/15/16 10:36 Dose: 0.4 mg - Objective Vital Signs: Vital Signs Temperature 98.7 F 03/15/16 17:18 Pulse Rate 92 H 03/15/16 17:18 Respiratory Rate 20 03/15/16 17:18 Blood Pressure 105/63 03/15/16 17:18 O2 Sat by Pulse Oximetry (%) 97 03/15/16 09:00 Constitutional: Yes: Well Nourished Neck: Yes: Supple Cardiovascular: Yes: WNL, Regular Rate and Rhythm Respiratory: Yes: WNL, Regular, CTA Bilaterally Gastrointestinal: Yes: WNL, Normal Bowel Sounds Labs: CBC, BMP 03/15/16 06:20 03/15/16 06:20 INR, PTT INR 1.18 (0.82-1.09) H 03/08/16 13:36 Problem List - Problems (1) Acute pancreatitis Assessment/Plan: S/P lap choley MRCP showed gallstone pancreatitis Pt tolerating diet DC planning for am Code(s): K85.9 - ACUTE PANCREATITIS, UNSPECIFIED * DO NOT USE * Qualifiers: Pancreatitis type: other Qualified Code(s): K85.8 - Other acute pancreatitis (2) HTN (hypertension) Assessment/Plan: BP stable Cont toprol/quinipril Code(s): I10 - ESSENTIAL (PRIMARY) HYPERTENSION Qualifiers: Hypertension type: essential hypertension Qualified Code(s): I10 - Essential (primary) hypertension (3) HLD (hyperlipidemia) Assessment/Plan: Cont lipitor/trilipx Code(s): E78.5 - HYPERLIPIDEMIA, UNSPECIFIED Qualifiers: Hyperlipidemia type: pure hypercholesterolemia Qualified Code(s): E78.0 - Pure hypercholesterolemia (4) CVA, old, aphasia Code(s): I69.320 - APHASIA FOLLOWING CEREBRAL INFARCTION (5) Cholelithiasis NOS Code(s): K80.20 - CALCULUS OF GALLBLADDER W/O CHOLECYSTITIS W/O OBSTRUCTION
[2016-03-15] MEDS: ATORVASTATIN CA 20 MG TABLET (FP) PO SCH (22:38)
[2016-03-16] MEDS: TAMSULOSIN HCL 0.4 MG CAP.ER.24H (FP) PO SCH (12:11)
[2016-03-16] MEDS: METOPROLOL SUCCINATE 25 MG TAB.SR.24H (FP) PO SCH (12:11)
[2016-03-16] MEDS: CLOPIDOGREL BISULFATE 75 MG TABLET (FP) PO SCH (12:11)
[2016-03-16] MEDS: ASPIRIN COATED 81 MG TABLET.EC PO SCH (12:11)
[2016-03-16] MEDS: PANTOPRAZOLE 40 MG TABLET (FP) PO SCH (12:12)
[2016-03-16] MEDS: GABAPENTIN 300 MG CAPSULE (FP) PO SCH (12:12)
[2016-03-16] MEDS: HEPARIN NA (PORCINE) 5,000 UNITS/ML 1ML VIAL SQ SCH (12:12)
[2016-03-16] MEDS ORDERED: PT OWN MED DRAWER 7, Y5N ONE (12:14)
[2016-03-16] MEDS: SOLIFENACIN SUCCINATE 5 MG TAB (FP) PO SCH (12:15)
[2016-03-16] MEDS: DUTASTERIDE 0.5 MG CAP (FP) PO SCH (12:15)
[2016-03-16] MEDS: QUINAPRIL HCL 10 MG TABLET (FP) PO SCH (12:15)
[2016-03-16] MEDS: FENOFIBRIC ACID 135 MG CAP PO SCH (12:16)
[2016-03-16 15:18] VITALS: BP 120/65; PULSE 104; TEMP 97.9
--- NOTE | 2016-03-16 15:56 | PN ---
Progress Note, Physician Chief Complaint: Patient was seen this am prior to being discharged Not in distress History of Present Illness: Patient was seen and examined. Chart was reviewed this am Denies chest pain, SOB or palpitations Appears comfortable Awaiting discharge - Objective Vital Signs: Vital Signs Temperature 97.9 F 03/16/16 10:00 Pulse Rate 104 H 03/16/16 10:00 Respiratory Rate 20 03/16/16 10:00 Blood Pressure 120/65 03/16/16 10:00 O2 Sat by Pulse Oximetry (%) 97 03/16/16 10:00 Neck: Yes: Supple Cardiovascular: Yes: Regular Rate and Rhythm, S1, S2 Respiratory: Yes: CTA Bilaterally Gastrointestinal: Yes: Normal Bowel Sounds, Soft. No: Tenderness Edema: No Problem List - Problems (1) Acute pancreatitis Code(s): K85.9 - ACUTE PANCREATITIS, UNSPECIFIED * DO NOT USE * Qualifiers: Pancreatitis type: other Qualified Code(s): K85.8 - Other acute pancreatitis (2) CVA, old, aphasia Code(s): I69.320 - APHASIA FOLLOWING CEREBRAL INFARCTION (3) Cholelithiasis NOS Code(s): K80.20 - CALCULUS OF GALLBLADDER W/O CHOLECYSTITIS W/O OBSTRUCTION (4) HLD (hyperlipidemia) Code(s): E78.5 - HYPERLIPIDEMIA, UNSPECIFIED Qualifiers: Hyperlipidemia type: pure hypercholesterolemia Qualified Code(s): E78.0 - Pure hypercholesterolemia (5) HTN (hypertension) Code(s): I10 - ESSENTIAL (PRIMARY) HYPERTENSION Qualifiers: Hypertension type: essential hypertension Qualified Code(s): I10 - Essential (primary) hypertension (6) Status post laparoscopic cholecystectomy Code(s): Z90.49 - ACQUIRED ABSENCE OF OTHER SPECIFIED PARTS OF DIGESTIVE TRACT Assessment/Plan 1. 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 HTN 4. Cholelithiasis 5. PVC PLAN: 1. Transthoracic echocardiography can be done as outpatient 2. Continue ASA +/- Plavix 3. Continue Toprol XL 25 mg QD and Accupril 10 mg QD Discharge planning Anand Araya MD
== END 2016-03-16 13:07 | disposition home or self-care (01) | DRG 419 ==
LOC: JER 12:29 → SUPCPDRO 12:29 → JERBED 16:54 → J4W 22:29 → J7W 03-12 16:20
PROVIDERS: ADMIT Internal Medicine; ATTEND Internal Medicine
PROC: 0FT44ZZ Resection of Gallbladder, Percutaneous Endoscopic Approach (ICD-10-PCS; principal; 2016-03-11 10:00)
DX: K85.10 Biliary acute pancreatitis without necrosis or infection (principal); I10 Essential (primary) hypertension; E78.5 Hyperlipidemia, unspecified; R26.89 Other abnormalities of gait and mobility; I69.320 Aphasia following cerebral infarction; N40.0 Benign prostatic hyperplasia without lower urinary tract symptoms; K21.9 Gastro-esophageal reflux disease without esophagitis; Z87.891 Personal history of nicotine dependence; I49.3 Ventricular premature depolarization; I69.392 Facial weakness following cerebral infarction; E86.0 Dehydration; E87.8 Other disorders of electrolyte and fluid balance, not elsewhere classified
CPT/HCPCS: 36415; 70450-TC; 71010-TC; 74176-TC; 74182-TC; 76705-TC; 80053; 80061; 80076; 81003; 81015; 82550; 82553; 82803; 83605; 83690; 83721; 83735; 84484; 85025; 85610; 85730; 86850; 86900; 86901; 87040; 87086; 88304-TC; 93005; 93010; 93306-TC; 94010; 94760; 97001-GP; 97116-GP; 99285-25; A9576; J1644

== ENCOUNTER 2016-03-22 10:33 | Inpatient (IN) | payer OTHER ==
--- NOTE | 2016-03-22 11:02 | PDOC ---
[id number] No Limitations - History of Present Illness Initial Comments: CHIEF COMPLAINT: 75 y/o afebrile male with PMH HTN, HLD, multiple CVAs, gallstone pancreatitis c/o abdominal pain with nausea and vomiting since yesterday. HISTORY OF PRESENT ILLNESS: The patient was admitted here on 03/08/16 for pancreatitis and had his gallbladder removed on 03/11. He was discharged from the hospital last week and states he was ok until yesterday when he began feeling nauseous and vomiting. He also admits to abdominal pain and inconsistent BMs with last occurring 2 days ago. He denies f/c, cough, hematemesis, coffee ground emesis, CP, SOB, back pain, hematuria, dysuria. Vital signs on arrival are notable for pulse of 99. REVIEW OF SYSTEMS: GENERAL/CONSTITUTIONAL: No fever/chills. No weakness. No weight change. HEAD, EYES, EARS, NOSE AND THROAT: No change in vision. No ear pain or discharge. No sore throat. CARDIOVASCULAR: No chest pain or shortness of breath. RESPIRATORY: No cough, wheezing, or hemoptysis. GASTROINTESTINAL: +abd pain, nausea, vomiting. No diarrhea. ?constipation. GENITOURINARY: No dysuria, frequency, or change in urination. MUSCULOSKELETAL: No joint or muscle swelling or pain. No neck or back pain. SKIN: No rash or easy bruising. NEUROLOGIC: No headache, vertigo, loss of consciousness, or loss of sensation. PSYCHIATRIC: No depression or anxiety. ENDOCRINE: No increased thirst. No abnormal weight change. HEMATOLOGIC/LYMPHATIC: No anemia, easy bleeding, or history of blood clots. ALLERGIC/IMMUNOLOGIC: No hives or skin allergy. No latex allergy. PHYSICAL EXAM: GENERAL: The patient is awake, alert, and fully oriented, in no acute distress. HEAD: Normal with no signs of trauma. ENT: Pupils equal, round and reactive to light, extraocular movements intact, sclera anicteric, conjunctiva clear. Neck supple. LUNGS: Clear to auscultation bilaterally. Normal excursion. No respiratory distress or use of accessory muscles. CV: RRR, S1/S2, no MRG. Cap refill < 2 sec. ABDOMEN: Soft, non-distended, TTP with active guarding or RUQ and epigastric region. No rebound or rigidity. Decrease BS x 4. EXTREMITIES: Normal range of motion, no edema. NEUROLOGICAL: Normal speech, normal gait. CN II-XII grossly intact. PSYCH: Normal mood, normal affect. SKIN: Warm, dry, normal turgor, no rashes or lesions noted. <Hoda Collins - Last Filed: 03/22/16 17:24> <Samson Valerio - Last Filed: 03/23/16 09:40> - General Chief Complaint: Pain Stated Complaint: POST-SURG, ABD PAIN Time Seen by Provider: 03/22/16 10:47 Past History - Past Medical History Cardiac Disorders: Yes (angina) CVA: Yes (TIA x 3, CVA x 2 , R hemiparesis) HTN: Yes Hypercholesterolemia: Yes - Surgical History Cholecystectomy: Yes - Immunization History Immunization Up to Date: Yes - Psycho/Social/Smoking Cessation Hx Anxiety: No Suicidal Ideation: No Smoking History: Never smoked Have you smoked in the past 12 months: No Information on smoking cessation initiated: No Hx Alcohol Use: Yes (heavy in past) Drug/Substance Use Hx: No Substance Use Type: None Hx Substance Use Treatment: No <Hoda Collins - Last Filed: 03/22/16 17:24> <Samson Valerio - Last Filed: 03/23/16 09:40> - Past Medical History Allergies/Adverse Reactions: Allergies Allergy/AdvReac Type Severity Reaction Status Date / Time No Known Allergies Allergy Verified 03/22/16 10:40 Home Medications: Ambulatory Orders Dutasteride [Avodart] 0.5 mg PO DAILY 03/08/16 Esomeprazole Magnesium [Nexium 24Hr] 40 mg PO DAILY 03/08/16 Fenofibrate Nanocrystallized [Fenofibrate] 145 mg PO DAILY 03/08/16 Gabapentin 300 mg PO BID 03/08/16 Oxybutynin Chloride [Ditropan Xl] 10 mg PO DAILY 03/08/16 Quinapril HCl [Accupril -] 10 mg PO DAILY 03/08/16 Simvastatin 40 mg PO DAILY 03/08/16 Tamsulosin HCl [Flomax] 0.4 mg PO DAILY 03/08/16 Aspirin Coated [Ecotrin -] 81 mg PO DAILY tablet.ec 03/16/16 Clopidogrel Bisulfate [Plavix -] 75 mg PO DAILY tablet 03/16/16 Metoprolol Succinate [Toprol XL -] 25 mg PO DAILY #30 tab.sr.24h 03/16/16 *Physical Exam - Vital Signs Last Vital Signs Temp Pulse Resp BP Pulse Ox 98.7 F 99 H 18 139/91 99 03/22/16 10:36 03/22/16 10:36 03/22/16 10:36 03/22/16 10:36 03/22/16 10:36 <Hoda Collins - Last Filed: 03/22/16 17:24> - Vital Signs Last Vital Signs Temp Pulse Resp BP Pulse Ox 98.9 F 85 20 121/75 98 03/23/16 01:41 03/23/16 01:41 03/23/16 01:41 03/23/16 01:41 03/22/16 20:52 <Samson Valerio - Last Filed: 03/23/16 09:40> ED Treatment Course - LABORATORY CBC & Chemistry Diagram: 03/22/16 11:25 03/22/16 11:25 <Hoda Collins - Last Filed: 03/22/16 17:24> - LABORATORY CBC & Chemistry Diagram: 03/22/16 11:25 03/22/16 11:25 - ADDITIONAL ORDERS Additional order review: 03/22/16 11:25 RBC 4.62 MCV 90.9 MCHC 33.2 RDW 14.1 MPV 9.2 Neutrophils % 78.9 Lymphocytes % 13.4 D Monocytes % 7.1 Eosinophils % 0.2 Basophils % 0.4 - Medications Given in the ED: ED Medications Discontinued Medications Generic Name Dose Route Start Last Admin Trade Name Makeda PRN Reason Stop Dose Admin Hydromorphone HCl 1 mg 03/22/16 20:13 03/23/16 00:41 Dilaudid Injection - IVPB 1 mg Q3H PRN Administration PAIN Sodium Chloride 1,000 mls @ 1,000 mls/hr 03/22/16 11:15 03/22/16 11:35 Normal Saline - IV 03/22/16 12:14 1,000 mls/hr ASDIR STA Administration Lactated Ringer's 1,000 mls @ 200 mls/hr 03/22/16 21:00 03/22/16 21:23 Lactated Ringers Solution IV 200 mls/hr ASDIR LEI Administration Metoclopramide HCl 10 mg 03/22/16 11:16 03/22/16 11:35 Reglan Injection - IVPB 03/22/16 11:17 10 mg ONCE ONE Administration Morphine Sulfate 2 mg 03/22/16 11:15 03/22/16 11:35 Morphine Injection - IVPUSH 03/22/16 11:16 2 mg ONCE ONE Administration Morphine Sulfate 2 mg 03/22/16 12:08 03/22/16 12:34 Morphine Injection - IVPUSH 03/22/16 12:09 2 mg ONCE ONE Administration Ondansetron HCl 4 mg 03/22/16 12:08 03/22/16 12:34 Zofran Injection IVPUSH 03/22/16 12:09 4 mg ONCE ONE Administration Piperacillin Sod/Tazobactam Sod 3.375 gm 03/22/16 20:30 03/22/16 21:24 Zosyn 3.375gm Ivpb (Pre-Docked) IVPB 03/23/16 04:31 3.375 gm Q8H LEI Administration <Samson Valerio - Last Filed: 03/23/16 09:40> Medical Decision Making - Medical Decision Making A/P: 75 y/o male with abd pain, nausea, and vomiting since yesterday. Pt had abd surgery 2 weeks ago. Concerned for constipation, SBO, infection. Plan is as follows: 1. Labs 2. IV fluids 3. IV reglan 4. IV morphine 5. UA 6. xray abd flat/upright Xray abd flat/upright IMPRESSION: No evidence of intestinal obstruction or pneumoperitoneum. Pt still in pain after 2mg of morphine. Ordered 2mg more of IV morphine. Pt still nauseous. Ordered 4mg iv zofran Pt started drinking for CT scan abd/pelvis CT scan abd/pelvis IMPRESSION: Large, infected pseudocyst with peripancreatic abscess with multiple microdroplets of gas within large fluid collection measuring at least 10x4cm anterior to the pancreatic body. Spoke with Dr. Spicer for admission. She thinks Jennifer should admit since she saw the patient last week. Jennifer no longer admits and Dr. Oseguera states she is not appellate conferee so Dr. Spicer would need to admit the patient. Spoke with Dr. Spicer again and she states not to admit until we have agreement from a GI doctor that they feel comfortable consulting with the patient. Spoke with Dr. Ferrari, who performed the cholecystectomy on 03/11 and he states the patient will most likely not need another surgery but his PAs can consult. Dr. Seun Mims, who saw the patient in the hospital last week, states the GI group appellate conferee should see the patient but if they do not call back he will see him. Dr. Leyva's group never returned call. Will put in consult for Dr. Mims. Spoke with Dr. Spicer again and she accepts admission. Pt states his pain is returning. Ordered another 4mg IV morphine Made patient NPO Informed the patient and his family of plan for admission and they are amenable. <Hoda Collins - Last Filed: 03/22/16 17:24> - Medical Decision Making The patient was seen and evaluated in conjunction with SHARI Collins under my direct supervision, ancillary studies were reviewed. I independently interviewed and evaluated the patient and I agree with the plan as outlined by SHARI Collins . <Samson Valerio - Last Filed: 03/23/16 09:40> *DC/Admit/Observation/Transfer - Discharge Dispostion Admit: Yes <Hoda Collins - Last Filed: 03/22/16 17:24> <Samson Valerio - Last Filed: 03/23/16 09:40> Diagnosis at time of Disposition: Pseudocyst of pancreas Abdominal pain Qualifiers: Abdominal location: generalized Qualified Code(s): R10.84 - Generalized abdominal pain - Discharge Dispostion Disposition: TRANSFER ACUTE CARE/OTHER HOSP Condition at time of disposition: Stable - Referrals
[2016-03-22] MEDS ORDERED: morphine CARPU-JECT 2 MG/1 ML DISP.SYRIN IVPUSH ONE ×2 (11:15→12:08)
[2016-03-22] MEDS ORDERED: SODIUM CHLORIDE 1,000 ML IV STA (11:15)
[2016-03-22] MEDS ORDERED: METOCLOPRAMIDE HCL INJECTION 10 MG/2 ML VIAL IVPB ONE (11:16)
[2016-03-22] MEDS ORDERED: morphine CARPU-JECT 2 MG/1 ML DISP.SYRIN ONE ×2 (11:26→12:10)
[2016-03-22] MEDS ORDERED: METOCLOPRAMIDE HCL INJECTION 10 MG/2 ML VIAL ONE (11:26)
[2016-03-22 11:39] LABS: BASOPHIL 0.4 % (0-2.0); EOSINOPHIL 0.2 % (0-4.5); MCH 30.2 pg (25.7-33.7); MCHC 33.2 g/dl (32.0-35.9); MEAN CELL VOLUME 90.9 fl (80-96); MEAN PLT VOLUME 9.2 fl (7.5-11.1); NEUTROPHILS 78.9 % (42.8-82.8); PLATELET COUNT 459 K/MM3 (134-434); RDW 14.1 % (11.9-15.9); WHITE BLOOD COUNT 12.2 K/mm3 (4.0-10.0)
[2016-03-22 11:50] LABS: INR 1.18 (0.82-1.09)
[2016-03-22 12:01] LABS: ALBUMIN 3.4 g/dl (3.4-5.0); ANION GAP 8 (8-16); BILIRUBIN,TOTAL 0.6 mg/dL (0.2-1.0); CALCIUM 10.3 mg/dL (8.5-10.1); CO2 26 mmol/L (21-32); CREATININE 1.3 mg/dL (0.7-1.3); GLUCOSE,RANDOM 105 mg/dL (74-106); SGPT/ALT 29 U/L (12-78)
[2016-03-22 12:04] LABS: ALK PHOS 57 U/L (45-117); TOT PROT 7.8 g/dl (6.4-8.2); TROPONIN I < 0.02 ng/ml (0.00-0.05)
[2016-03-22 12:06] LABS: SGOT/AST 30 U/L (15-37)
[2016-03-22] MEDS ORDERED: ONDANSETRON 4 MG/2 ML VIAL IVPUSH ONE (12:08)
[2016-03-22] MEDS ORDERED: ONDANSETRON 4 MG/2 ML VIAL ONE (12:10)
[2016-03-22 15:39] LABS: URINE APPEARANCE CLEAR; URINE BILIRUBIN NEGATIVE (NEGATIVE); URINE BLOOD NEGATIVE (NEGATIVE); URINE COLOR YELLOW; URINE GLUCOSE (UA) NEGATIVE (NEGATIVE); URINE KETONE NEGATIVE (NEGATIVE); URINE LEUK ESTERASE NEGATIVE (NEGATIVE); URINE NITRITE NEGATIVE (NEGATIVE); URINE PROTEIN NEGATIVE (NEGATIVE); URINE UROBILINOGEN NEGATIVE E.U./dl (0.2-1.0)
[2016-03-22] MEDS ORDERED: morphine CARPU-JECT 4 MG/1 ML DISP.SYRIN ONE (16:32)
[2016-03-22 18:09] LABS: AMYLASE 119 U/L (25-115)
[2016-03-22] MEDS ORDERED: HYDROmorphone HCL CARPU-JECT 1 MG/1 ML DISP.SYRIN IVPB PRN (20:13)
[2016-03-22] MEDS ORDERED: SODIUM CHLORIDE 1,000 ML IV SCH (20:15)
--- NOTE | 2016-03-22 20:17 | HP ---
Admitting History and Physical - Primary Care Physician PCP: Esdras Spicer - Admission History of Present Illness: 75 male with PMH HTN, HLD, multiple CVAs, gallstone pancreatitis c/o abdominal pain with nausea and vomiting since yesterday. he was admitted here on 03/08/16 for pancreatitis and had his gallbladder removed on 03/11. He was discharged from the hospital last week and states he was ok until yesterday when he began feeling nauseous and vomiting. 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) TIA x 3 prior to CVA's), TIA Cardiovascular: Yes: HTN, Hyperlipdemia, Other (Angina Pectoris) Pulmonary: Yes: Pneumonia - Smoking History Smoking history: Never smoked Have you smoked in the past 12 months: No - Alcohol/Substance Use Hx Alcohol Use: Yes (heavy in past) History of Substance Use: reports: None - Social History ADL: Family Assistance History of Recent Travel: No Home Medications - Allergies Allergies/Adverse Reactions: Allergies Allergy/AdvReac Type Severity Reaction Status Date / Time No Known Allergies Allergy Verified 03/22/16 10:40 - Home Medications Home Medications: Ambulatory Orders Dutasteride [Avodart] 0.5 mg PO DAILY 03/08/16 Esomeprazole Magnesium [Nexium 24Hr] 40 mg PO DAILY 03/08/16 Fenofibrate Nanocrystallized [Fenofibrate] 145 mg PO DAILY 03/08/16 Gabapentin 300 mg PO BID 03/08/16 Oxybutynin Chloride [Ditropan Xl] 10 mg PO DAILY 03/08/16 Quinapril HCl [Accupril -] 10 mg PO DAILY 03/08/16 Simvastatin 40 mg PO DAILY 03/08/16 Tamsulosin HCl [Flomax] 0.4 mg PO DAILY 03/08/16 Aspirin Coated [Ecotrin -] 81 mg PO DAILY tablet.ec 03/16/16 Clopidogrel Bisulfate [Plavix -] 75 mg PO DAILY tablet 03/16/16 Metoprolol Succinate [Toprol XL -] 25 mg PO DAILY #30 tab.sr.24h 03/16/16 Family Disease History - Family Disease History Family History: Denies Family Disease History: Other: Brother (colon cancer) Review of Systems - Review of Systems Gastrointestinal: reports: Abdominal Pain Physical Examination Vital Signs: Vital Signs Temperature 98.2 F 03/22/16 17:31 Pulse Rate 87 03/22/16 17:31 Respiratory Rate 20 03/22/16 17:31 Blood Pressure 140/70 03/22/16 17:31 O2 Sat by Pulse Oximetry (%) 98 03/22/16 17:31 Constitutional: Yes: No Distress HENT: Yes: Atraumatic Neck: Yes: Supple Cardiovascular: Yes: Regular Rate and Rhythm Respiratory: Yes: CTA Bilaterally Problem List - Problems (1) Abdominal pain Code(s): R10.9 - UNSPECIFIED ABDOMINAL PAIN Qualifiers: Abdominal location: generalized Qualified Code(s): R10.84 - Generalized abdominal pain (2) Pseudocyst of pancreas Code(s): K86.3 - PSEUDOCYST OF PANCREAS (3) HLD (hyperlipidemia) Code(s): E78.5 - HYPERLIPIDEMIA, UNSPECIFIED Qualifiers: (4) HTN (hypertension) Code(s): I10 - ESSENTIAL (PRIMARY) HYPERTENSION Qualifiers: Assessment/Plan Laboratory Tests 03/22/16 03/22/16 03/22/16 11:04 11:25 11:25 WBC 12.2 H RBC 4.62 Hgb 13.9 Hct 42.0 MCV 90.9 MCHC 33.2 RDW 14.1 Plt Count 459 H D MPV 9.2 Neutrophils % 78.9 Lymphocytes % 13.4 D Monocytes % 7.1 Eosinophils % 0.2 Basophils % 0.4 INR 1.18 H Sodium Potassium Chloride Carbon Dioxide Anion Gap BUN Creatinine Creat Clearance w eGFR Random Glucose Lactic Acid Calcium Total Bilirubin AST ALT Alkaline Phosphatase Creatine Kinase Troponin I Total Protein Albumin Total Amylase Lipase Urine Color Yellow Urine Appearance Clear Urine pH 5.0 Ur Specific [place] 1.042 H Urine Protein Negative Urine Glucose (UA) Negative Urine Ketones Negative Urine Blood Negative Urine Nitrite Negative Urine Bilirubin Negative Urine Urobilinogen Negative Ur Leukocyte Esterase Negative 03/22/16 03/22/16 03/22/16 11:25 11:25 16:52 WBC RBC Hgb Hct MCV MCHC RDW Plt Count MPV Neutrophils % Lymphocytes % Monocytes % Eosinophils % Basophils % INR Sodium 139 Potassium 4.4 Chloride 105 Carbon Dioxide 26 Anion Gap 8 BUN 18 Creatinine 1.3 Creat Clearance w eGFR 53.67 Random Glucose 105 Lactic Acid 1.821 Calcium 10.3 H Total Bilirubin 0.6 AST 30 ALT 29 D Alkaline Phosphatase 57 Creatine Kinase 112 Troponin I < 0.02 Total Protein 7.8 D Albumin 3.4 D Total Amylase 119 H Lipase 718 H Urine Color Urine Appearance Urine pH Ur Specific [place] Urine Protein Urine Glucose (UA) Urine Ketones Urine Blood Urine Nitrite Urine Bilirubin Urine Urobilinogen Ur Leukocyte Esterase 1.pseudocyst of pncrease/abcess npo, ivf, iv abx id consult gi and surgery consult 2.htn 3.hld dr cabrera would like patient to be transfered to tertiary care for higher level of care he made arrangements
[2016-03-22] MEDS ORDERED: PIPERACILLIN/TAZOB 3.375 GM/50 ML PRE-DOCKED IVPB SCH (20:30)
[2016-03-22 20:44] VITALS: BMI 24.0
[2016-03-22] MEDS ORDERED: LACTATED RINGERS SOLUTION 1,000 ML IV SCH (21:00)
--- NOTE | 2016-03-22 21:30 | CONSULT ---
Consult Consult Specialty:: GI Referred by:: Dr. Spicer Reason for Consultation:: Pancreatitis and peripancreatic fluid collections - History of Present Illness Chief Complaint: Abdominal pain History of Present Illness: 75M admitted through [facility] ER for evaluation of abdominal pain. Mr. Sanchez has an expressive aphasia a a sequela to prior CVA so it was difficult to obtain history from him. I did speak to his niece via telephone today who tells me that he was complaining of abdominal pain over the last 2-3 days that became significantly worse today along with diminished appetite. He was brought to the ER, where he was noted to have a leukocytosis, and a 4 x 10cm fluid collection adjacent to the pancreas with air droplets. Of note he was noted to have a ? cystic structure vs. duodenal diverticulum at the level of the head of the pancreas on imaging the end of this past february when he was worked up for suspected gallstone pancreatitis. MRCP at that time failed to reveal a CBD stone. He underwent Lap Norm 03/11. - Past Medical History [employer]: Yes: CVA (x 2 (the last in 1992) TIA x 3 prior to CVA's), TIA Cardio/Vascular: Yes: HTN, Hyperlipdemia, Other (Angina Pectoris) Pulmonary: Yes: Pneumonia - Past Surgical History Past Surgical History: Yes: Cholecystectomy (Lap) - Alcohol/Substance Use Hx Alcohol Use: Yes (heavy in past) History of Substance Use: reports: None - Smoking History Smoking history: Never smoked Have you smoked in the past 12 months: No - Social History ADL: Family Assistance History of Recent Travel: No Home Medications - Allergies Allergies/Adverse Reactions: Allergies Allergy/AdvReac Type Severity Reaction Status Date / Time No Known Allergies Allergy Verified 03/22/16 10:40 - Home Medications Home Medications: Ambulatory Orders Dutasteride [Avodart] 0.5 mg PO DAILY 03/08/16 Esomeprazole Magnesium [Nexium 24Hr] 40 mg PO DAILY 03/08/16 Fenofibrate Nanocrystallized [Fenofibrate] 145 mg PO DAILY 03/08/16 Gabapentin 300 mg PO BID 03/08/16 Oxybutynin Chloride [Ditropan Xl] 10 mg PO DAILY 03/08/16 Quinapril HCl [Accupril -] 10 mg PO DAILY 03/08/16 Simvastatin 40 mg PO DAILY 03/08/16 Tamsulosin HCl [Flomax] 0.4 mg PO DAILY 03/08/16 Aspirin Coated [Ecotrin -] 81 mg PO DAILY tablet.ec 03/16/16 Clopidogrel Bisulfate [Plavix -] 75 mg PO DAILY tablet 03/16/16 Metoprolol Succinate [Toprol XL -] 25 mg PO DAILY #30 tab.sr.24h 03/16/16 Family Disease History - Family Disease History Family Disease History: Other: Brother (colon cancer) Review of Systems - Review of Systems Cardiovascular: denies: Chest Pain Gastrointestinal: reports: Abdominal Pain Physical Exam-GI Vital Signs: Vital Signs Temperature 98 F 03/22/16 20:36 Pulse Rate 78 03/22/16 20:36 Respiratory Rate 20 03/22/16 20:52 Blood Pressure 145/76 03/22/16 20:36 O2 Sat by Pulse Oximetry (%) 98 03/22/16 20:52 Constitutional: Yes: Calm Eyes: No: Sclera Icterus Cardiovascular: Yes: Regular Rate and Rhythm Respiratory: Yes: Diminished (at bases b/l, poor inspiratory effort) Gastrointestinal Inspection: Yes: Scars (healing trochar scars). No: Distention ...Auscultate: Yes: Normoactive Bowel Sounds ...Palpate: Yes: Tenderness (Mid/Upper abdomen) Edema: No Labs: INR, PTT INR 1.18 (0.82-1.09) H 03/22/16 11:25 Imaging - Results Cat Scan: Report Reviewed, Image Reviewed Problem List - Problems (1) Pseudocyst of pancreas Assessment/Plan: Peripancreatic fluid collection: Concern for infected pseudocyst vs. ? early walled off pancreatic necrosis vs. secondarily infected fluid collection s/p Lap norm (per Dr. Sandoval the general surgeon who performed the surgery, when he explored Mr. Sanchez during his cholecystecomy, the area appeared OK) Currently hemodyamically stable Advised the following: - IV Abx - NPO - IV hydration - Given the possibility that this could be more complicated in terms of the etiology of the fluid collection, I called Dr. Estiven Mensah, heptobiliary surgeon @ [facility] and discussed the case. He agreed that transfer to the [facility] for further evaluation / therapeutics would be a reasonable course of action and accepted Mr. Sancehz for transfer. I did explain this to Mr. Sanchez as well. Given his expressive aphasia, it was difficult to understand him. I explained it to his niece ([phone]) as well via telephone who in turn discussed things with Mr. Sanchez via telephone. I discussed the plan with Dr. Spicer as well as Dr. Sandoval this evening via telephone as well. Code(s): K86.3 - PSEUDOCYST OF PANCREAS
[2016-03-22] MEDS ORDERED: ONDANSETRON 4 MG/2 ML VIAL IVPB PRN (21:43)
[2016-03-23 01:43] VITALS: BP 121/75; PULSE 85; TEMP 98.9
[2016-03-23] MEDS ORDERED: DUTASTERIDE 0.5 MG CAP (FP) PO SCH (10:00)
[2016-03-23] MEDS ORDERED: CLOPIDOGREL BISULFATE 75 MG TABLET (FP) PO SCH (10:00)
[2016-03-23] MEDS ORDERED: PIPERACILLIN/TAZOB 3.375 GM/50 ML PRE-DOCKED IVPB SCH (10:00)
[2016-03-23] MEDS ORDERED: METOPROLOL SUCCINATE 25 MG TAB.SR.24H (FP) PO SCH (10:00)
--- NOTE | 2016-03-23 20:02 | DS ---
Physical Examination Vital Signs: Vital Signs Temperature 98.9 F 03/23/16 01:41 Pulse Rate 85 03/23/16 01:41 Respiratory Rate 20 03/23/16 01:41 Blood Pressure 121/75 03/23/16 01:41 O2 Sat by Pulse Oximetry (%) 98 03/22/16 20:52 Discharge Summary Reason For Visit: ABD PAIN/PSEUDOCYST OF PANCREAS Current Active Problems Abdominal pain (Acute) Pseudocyst of pancreas (Acute) Condition: Stable - Instructions Referrals: Laina Shrestha MD [Primary Care Provider] - Disposition: TRANSFER ACUTE CARE/OTHER HOSP - Home Medications Comprehensive Discharge Medication List: Ambulatory Orders Dutasteride [Avodart] 0.5 mg PO DAILY 03/08/16 Esomeprazole Magnesium [Nexium 24Hr] 40 mg PO DAILY 03/08/16 Fenofibrate Nanocrystallized [Fenofibrate] 145 mg PO DAILY 03/08/16 Gabapentin 300 mg PO BID 03/08/16 Oxybutynin Chloride [Ditropan Xl] 10 mg PO DAILY 03/08/16 Quinapril HCl [Accupril -] 10 mg PO DAILY 03/08/16 Simvastatin 40 mg PO DAILY 03/08/16 Tamsulosin HCl [Flomax] 0.4 mg PO DAILY 03/08/16 Aspirin Coated [Ecotrin -] 81 mg PO DAILY tablet.ec 03/16/16 Clopidogrel Bisulfate [Plavix -] 75 mg PO DAILY tablet 03/16/16 Metoprolol Succinate [Toprol XL -] 25 mg PO DAILY #30 tab.sr.24h 03/16/16 transferred to [facility]
== END 2016-03-23 02:47 | disposition short-term general hospital (02) | DRG 440 ==
LOC: JER 10:33 → JERBED 17:56 → UNDOADMIN 17:56 → J6S 20:01 → JERBED 20:01 → J6S 20:12
PROVIDERS: ADMIT Internal Medicine; ATTEND Internal Medicine
DX: K86.3 Pseudocyst of pancreas (principal); I10 Essential (primary) hypertension; E78.5 Hyperlipidemia, unspecified; Z86.73 Personal history of transient ischemic attack (TIA), and cerebral infarction without residual deficits
CPT/HCPCS: 36415; 74020-TC; 74177-TC; 80053; 81003; 82150; 82550; 83605; 83690; 84484; 85025; 85610; 99283-25; Q9967